=== PATIENT | male | born 1990 | race Caucasian/White ===

== ENCOUNTER 2019-02-08 14:08 | Emergency (ER) | payer BC, OTHER, SELFPAY ==
[~2019-02-08] VITALS: Ht 172.7 cm; Wt 50.0 kg
[2019-02-08 14:26] VITALS: BP 133/75
[2019-02-08 15:40] LABS: HEMATOCRIT 52.3 % (42.0-52.0); HEMOGLOBIN 17.8 g/dl (13.5-17.5); MEAN CORPUSCULAR HEMOGLOBIN 30.5 pg (27.0-33.0); MEAN CORPUSCULAR VOLUME 89.7 fl (80.0-96.0); PLATELET COUNT, AUTOMATED 436 10^3/uL (150-450); RED BLOOD COUNT 5.83 10^6/uL (4.30-6.10); WHITE BLOOD COUNT 8.6 10^3/uL (4.0-10.0)
[2019-02-08 16:13] LABS: ACETAMINOPHEN LEVEL < 2.0 UG/ML (10.0-30.0); ALBUMIN 4.9 GM/DL (3.2-5.2); ALT/SGPT 18 U/L (12-78); BILIRUBIN,DIRECT < 0.1 MG/DL (0.0-0.2); BILIRUBIN,TOTAL 0.2 MG/DL (0.2-1.0); BLOOD UREA NITROGEN 10 MG/DL (7-18); CALCIUM LEVEL 9.9 MG/DL (8.5-10.1); CARBON DIOXIDE LEVEL 28 MEQ/L (21-32); CHLORIDE LEVEL 104 MEQ/L (98-107); CREATININE FOR GFR 0.93 MG/DL (0.70-1.30); ETHYL ALCOHOL (ETHANOL) 0.427 % (0.000-0.010); GLOMERULAR FILTRATION RATE > 60.0 (>60); GLUCOSE, FASTING 72 MG/DL (70-100); POTASSIUM SERUM 4.6 MEQ/L (3.5-5.1); SALICYLATE LEVEL 5.1 MG/DL (5.0-30.0); SODIUM LEVEL 143 MEQ/L (136-145); THYROID STIMULATING HORMONE 0.968 uIU/ML (0.358-3.740); TOTAL PROTEIN 8.5 GM/DL (6.4-8.2)
[2019-02-08 16:15] LABS: AMPHETAMINES LEVEL URINE NEGATIVE (NEGATIVE); BARBITURATES URINE NEGATIVE (NEGATIVE); BENZODIAZEPINES URINE NEGATIVE (NEGATIVE); CANNABINOIDS URINE NEGATIVE (NEGATIVE); COCAINE METABOLITE URINE NEGATIVE (NEGATIVE); METHADONE URINE NEGATIVE (NEGATIVE); OPIATES URINE NEGATIVE (NEGATIVE); PHENCYCLIDINE URINE NEGATIVE (NEGATIVE)
== END 2019-02-08 18:45 | disposition home or self-care (01) ==
LOC: M ED 14:08
DX: F10.129 Alcohol abuse with intoxication, unspecified (principal); Y90.2 Blood alcohol level of 40-59 mg/100 ml
CPT/HCPCS: 36415; 80048; 80076; 80307; 84443; 85027; 99284; G0480

== ENCOUNTER → 2019-03-01 | Outpatient (CLI) | payer MEDICAID, SELFPAY | LOC: M OUTALCOH 10:24 | PROVIDERS: ATTEND Psychiatry & Neurology Psychiatry | DX: F10.20 Alcohol dependence, uncomplicated (principal); F11.10 Opioid abuse, uncomplicated; F12.10 Cannabis abuse, uncomplicated ==

== ENCOUNTER → 2019-06-14 | Outpatient (CLI) | payer MEDICAID | LOC: M OUTALCOH 08:17 | PROVIDERS: ATTEND Psychiatry & Neurology Addiction Medicine | DX: F10.20 Alcohol dependence, uncomplicated (principal) ==

== ENCOUNTER → 2019-06-21 | Outpatient (REF) | payer MEDICAID ==
[2019-06-21 14:22] LABS: ALBUMIN 4.3 GM/DL (3.2-5.2); ALT/SGPT 16 U/L (12-78); BILIRUBIN,TOTAL 0.3 MG/DL (0.2-1.0); BLOOD UREA NITROGEN 10 MG/DL (7-18); CALCIUM LEVEL 9.8 MG/DL (8.5-10.1); CARBON DIOXIDE LEVEL 32 MEQ/L (21-32); CHLORIDE LEVEL 102 MEQ/L (98-107); CHOLESTEROL LEVEL 181 MG/DL (<200); CHOLESTEROL RISK RATIO 3.693 (<5); CREATININE FOR GFR 0.77 MG/DL (0.70-1.30); FREE T4 0.86 NG/DL (0.76-1.46); GLOMERULAR FILTRATION RATE > 60.0 (>60); GLUCOSE, FASTING 109 MG/DL (70-100); HDL CHOLESTEROL 49 MG/DL (>40); LDL CHOLESTEROL 91 MG/DL (<100); NON-HDL-C 132 MG/DL; POTASSIUM SERUM 4.2 MEQ/L (3.5-5.1); SODIUM LEVEL 139 MEQ/L (136-145); TOTAL 25(OH) VITAMIN D 7.3 NG/ML (30.0-100.0); TOTAL PROTEIN 7.7 GM/DL (6.4-8.2); TRIGLYCERIDES LEVEL 207 MG/DL (<150)
[2019-06-21 14:25] LABS: BASO # 0.1 10^3/uL (0.0-0.2); BASO % 1.1 % (0.0-1.0); EOS # 0.8 10^3/uL (0.0-0.5); HEMATOCRIT 46.8 % (42.0-52.0); HEMOGLOBIN 15.2 g/dl (13.5-17.5); LYMPH # 2.8 10^3/uL (1.5-5.0); LYMPH % 26.6 % (24.0-44.0); MEAN CORPUSCULAR HEMOGLOBIN 29.7 pg (27.0-33.0); MEAN CORPUSCULAR HGB CONC 32.5 g/dl (32.0-36.5); MEAN CORPUSCULAR VOLUME 91.4 fl (80.0-96.0); MONO # 1.4 10^3/uL (0.0-0.8); MONO % 13.3 % (0.0-5.0); NEUTROPHILS # 5.3 10^3/uL (1.5-8.5); PLATELET COUNT, AUTOMATED 428 10^3/uL (150-450); RED BLOOD COUNT 5.12 10^6/uL (4.30-6.10); WHITE BLOOD COUNT 10.5 10^3/uL (4.0-10.0)
== END ==
LOC: M LAB REF 13:35
PROVIDERS: ATTEND Physician Assistant
DX: Z13.9 Encounter for screening, unspecified (principal); Z13.228 Encounter for screening for other metabolic disorders; F10.99 Alcohol use, unspecified with unspecified alcohol-induced disorder; F33.1 Major depressive disorder, recurrent, moderate; F34.1 Dysthymic disorder; F11.21 Opioid dependence, in remission

== ENCOUNTER 2019-06-22 08:54 | Outpatient (RCR) | payer MEDICAID | END 2019-06-25 | LOC: M OUTALCOH 08:54 | PROVIDERS: ATTEND Psychiatry & Neurology Addiction Medicine | DX: F10.20 Alcohol dependence, uncomplicated (principal); F11.10 Opioid abuse, uncomplicated; F12.10 Cannabis abuse, uncomplicated; F17.200 Nicotine dependence, unspecified, uncomplicated ==

== ENCOUNTER 2019-07-21 15:00 | Outpatient (RCR) | payer MEDICAID | END 2019-07-24 | LOC: M OUTALCOH 15:00 | PROVIDERS: ATTEND Psychiatry & Neurology Addiction Medicine | DX: F10.20 Alcohol dependence, uncomplicated (principal); F11.11 Opioid abuse, in remission; F12.10 Cannabis abuse, uncomplicated; F17.200 Nicotine dependence, unspecified, uncomplicated ==

== ENCOUNTER 2019-07-28 19:12 | Emergency (ER) | payer MEDICAID ==
[~2019-07-28] VITALS: Ht 170.2 cm; Wt 56.9 kg
[2019-07-28] MEDS ORDERED: SUBO8MIS SL (19:30)
[2019-07-28 19:59] LABS: BASO # 0.1 10^3/uL (0.0-0.2); BASO % 0.9 % (0.0-1.0); EOS # 0.1 10^3/uL (0.0-0.5); EOS % 0.7 % (0.0-3.0); HEMATOCRIT 47.7 % (42.0-52.0); HEMOGLOBIN 15.9 g/dl (13.5-17.5); LYMPH # 2.1 10^3/uL (1.5-5.0); MEAN CORPUSCULAR HEMOGLOBIN 29.6 pg (27.0-33.0); MEAN CORPUSCULAR HGB CONC 33.3 g/dl (32.0-36.5); MEAN CORPUSCULAR VOLUME 88.7 fl (80.0-96.0); MONO # 1.2 10^3/uL (0.0-0.8); MONO % 13.1 % (0.0-5.0); NEUTROPHILS # 5.5 10^3/uL (1.5-8.5); NEUTROPHILS % 60.6 % (36.0-66.0); PLATELET COUNT, AUTOMATED 525 10^3/uL (150-450); RED BLOOD COUNT 5.38 10^6/uL (4.30-6.10)
[2019-07-28 20:27] LABS: ALBUMIN 4.8 GM/DL (3.2-5.2); ALT/SGPT 18 U/L (12-78); BILIRUBIN,DIRECT 0.2 MG/DL (0.0-0.2); BILIRUBIN,TOTAL 0.4 MG/DL (0.2-1.0); BLOOD UREA NITROGEN 12 MG/DL (7-18); CALCIUM LEVEL 9.8 MG/DL (8.5-10.1); CARBON DIOXIDE LEVEL 30 MEQ/L (21-32); CHLORIDE LEVEL 101 MEQ/L (98-107); CREATININE FOR GFR 0.88 MG/DL (0.70-1.30); GLOMERULAR FILTRATION RATE > 60.0 (>60); GLUCOSE, FASTING 91 MG/DL (70-100); POTASSIUM SERUM 4.9 MEQ/L (3.5-5.1); SODIUM LEVEL 135 MEQ/L (136-145); TOTAL PROTEIN 8.5 GM/DL (6.4-8.2)
[2019-07-28] MEDS ORDERED: BUPRENORPHINE/NALOXONE 8-2MG SUBLINGUAL TABLET(SUBOXONE) SL ONE (20:45)
[2019-07-28 21:00] VITALS: BP 112/70
--- NOTE | 2019-07-29 07:09 | ECGEPIP ---
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
== END 2019-07-28 21:24 | disposition home or self-care (01) ==
LOC: M ED 19:12
DX: F11.23 Opioid dependence with withdrawal (principal); F17.200 Nicotine dependence, unspecified, uncomplicated

== ENCOUNTER 2019-08-11 13:53 | Outpatient (RCR) | payer MEDICAID ==
[~2019-08-11 13:53] MED LIST: SUBO8MIS SL
== END 2019-08-24 ==
LOC: M OUTALCOH 13:53
PROVIDERS: ATTEND Psychiatry & Neurology Addiction Medicine
DX: F10.20 Alcohol dependence, uncomplicated (principal); F11.11 Opioid abuse, in remission; F12.11 Cannabis abuse, in remission; F17.200 Nicotine dependence, unspecified, uncomplicated

== ENCOUNTER 2019-09-02 15:31 | Inpatient (IN) | payer MEDICAID, OTHER ==
[~2019-09-02] VITALS: Ht 170.2 cm; Wt 56.8 kg
[2019-09-02 16:04] LABS: HEMATOCRIT 51.5 % (42.0-52.0); HEMOGLOBIN 17.4 g/dl (13.5-17.5); MEAN CORPUSCULAR HEMOGLOBIN 29.7 pg (27.0-33.0); MEAN CORPUSCULAR HGB CONC 33.8 g/dl (32.0-36.5); PLATELET COUNT, AUTOMATED 459 10^3/uL (150-450); RED BLOOD COUNT 5.85 10^6/uL (4.30-6.10); WHITE BLOOD COUNT 10.6 10^3/uL (4.0-10.0)
[2019-09-02 16:42] LABS: ACETAMINOPHEN LEVEL < 2.0 UG/ML (10.0-30.0); ALBUMIN 4.5 GM/DL (3.2-5.2); ALT/SGPT 16 U/L (12-78); BILIRUBIN,DIRECT < 0.1 MG/DL (0.0-0.2); BILIRUBIN,TOTAL 0.2 MG/DL (0.2-1.0); BLOOD UREA NITROGEN 11 MG/DL (7-18); CALCIUM LEVEL 9.4 MG/DL (8.5-10.1); CARBON DIOXIDE LEVEL 33 MEQ/L (21-32); CHLORIDE LEVEL 104 MEQ/L (98-107); CREATININE FOR GFR 0.81 MG/DL (0.70-1.30); ETHYL ALCOHOL (ETHANOL) 0.417 % (0.000-0.010); GLOMERULAR FILTRATION RATE > 60.0 (>60); GLUCOSE, FASTING 95 MG/DL (70-100); POTASSIUM SERUM 4.3 MEQ/L (3.5-5.1); SALICYLATE LEVEL 7.2 MG/DL (5.0-30.0); SODIUM LEVEL 145 MEQ/L (136-145); THYROID STIMULATING HORMONE 0.553 uIU/ML (0.358-3.740); TOTAL PROTEIN 8.2 GM/DL (6.4-8.2)
[2019-09-02] MEDS ORDERED: HALOPERIDOL 5 MG/ML VIAL (J1630) IM ONE (17:15)
[2019-09-02] MEDS ORDERED: LIDOCAINE 2% 5ML JELLY UROJET TOP ONE (17:15)
[2019-09-02] MEDS ORDERED: LORazepam 2 MG/ML VIAL (J2060) IM ONE (17:15)
[2019-09-02] MEDS ORDERED: diphenhydrAMINE 50MG/ML VIAL (J1200) IM ONE (17:15)
[2019-09-02] MEDS ORDERED: NS 1,000 ML IV ONE ×2 (19:00→20:00)
[2019-09-02 22:41] LABS: AMPHETAMINES LEVEL URINE NEGATIVE (NEGATIVE); BARBITURATES URINE NEGATIVE (NEGATIVE); BENZODIAZEPINES URINE NEGATIVE (NEGATIVE); CANNABINOIDS URINE NEGATIVE (NEGATIVE); COCAINE METABOLITE URINE NEGATIVE (NEGATIVE); METHADONE URINE NEGATIVE (NEGATIVE); OPIATES URINE NEGATIVE (NEGATIVE); PHENCYCLIDINE URINE NEGATIVE (NEGATIVE)
[2019-09-03] MEDS ORDERED: OXAZEPAM 15 MG CAP PO ONE (04:30)
[2019-09-03] MEDS ORDERED: MOM 30ML SUSPENSION UDC PO PRN (06:00)
[2019-09-03] MEDS ORDERED: traZODone 50 MG TAB PO PRN (06:00)
[2019-09-03] MEDS ORDERED: ACETAMINOPHEN TAB 650MG DOSE (2X325MG) PO PRN (06:00)
[2019-09-03] MEDS ORDERED: MAALOX 30 ML SUSP *UDC PO PRN (06:00)
[2019-09-03] MEDS ORDERED: HYDR-3363 PO (06:07)
[2019-09-03] MEDS ORDERED: VITA50005 PO (06:07)
[2019-09-03] MEDS ORDERED: SERT-138 PO (06:07)
[2019-09-03] MEDS ORDERED: SUBO8MIS SL (06:07)
[2019-09-03] MEDS ORDERED: LORazepam 2 MG TAB PO PRN (09:00)
--- NOTE | 2019-09-03 10:05 | MHHPEPDOC ---
[facility] History & Physical History and Physical DATE OF ADMISSION: Sep 03, 2019 at 05:46 New Patient Alejandro Warren MRN: N/A Date of : N/A Date of Service: 09/03/2019 Chief Complaint "I was drinking a lot." History of Present Illness The patient, a 29-year-old man with no major past psychiatric history, presents after becoming extraordinarily intoxicated with a blood alcohol of 0.4 and above. He had been brought in after reportedly making suicidal statements and after being medically cleared was admitted out of an abundance of caution to the inpatient mental health unit. He does have a history of opioid use and substance use problems, but denies any history of psychiatric involvement or treatment. When the patient was met with he stated that he felt much improved after he had been detoxed off the alcohol and that he did not actually feel like he wanted to hurt himself. He described that he had been drinking too much due to the coronavirus quarantine and that he had started to become quite anxious and depressed while he was highly intoxicated. He describes he does not remember the majority of the admission up until he had become sober. Review Of Systems Depression: The patient denies any episodes of unprovoked depressed mood associated with neurovegetative symptoms lasting longer than 2 weeks with symptoms present nearly everyday. Anxiety: The patient denies any excessive worry associated with physical symptoms. They deny any experience of discreet panic in the past. Ricarda: The patient denies any episodes of euphoria/dysphoria associated with decreased need for sleep, hedonism, talkatively or impulsivity lasting longer than 5 days. Psychotic: The patient denies any experiences of auditory or visual hallucinations. They deny any episodes of paranoia or delusional thinking in the past Trauma: The patient denies any traumatic events associated with nightmares or intrusive thoughts. Borderline: The patient screens negative for borderline personality at this junction. Past Psychiatric History The patient reports no history of psychiatric admissions, medication trials or current follow up. Denies any history of suicide attempts. Allergies Please see below. Family Psychiatric History Reports that majority of his family have a history of depression, on antidepressants, and that his brother is addicted to heroin, methamphetamine, alcohol, but no history of suicide. Social History The patient is a never man with no children at this time. He lives alone in a rented house. He is currently unemployed and is receiving public assistance. He graduated the GED. Has no history of legal problems. Grew up with parents with no history of trauma or abuse. Reports good relationship with both, reports being estranged from brothers. Substance Abuse History Has an extensive history of alcohol use, nicotine, and opioids, currently on Suboxone treated by Dr. Forbes. Medical History Patient has no significant past medical history. Mental Status Examination General: Well dressed with good hygiene Speech: Spontaneous and fluid Thought processes: Linear and logical MSK: Smooth and coordinated gait, no signs of tremors or involuntary orofacial movements Thought content: Future orientated Abstract reasoning, and computation: Intact Description of associations: Intact Description of abnormal or psychotic thoughts: Denies any suicidal or homicidal ideation. Denies any auditory or visual hallucinations. Does not appear to be responding to internal stimuli. Does not appear to be endorsing any bizarre or paranoid ideation. Judgment: fair Insight: fair Orientation: Alert and orientated 3 Cognition: Grossly normal Recent and remote memory: Intact Attention span and concentration: Intact Fund of knowledge: Adequate Mood: "okay" Affect: Euthymic with a full range Diagnoses Unspecified depressive disorder. Adjustment versus alcohol induced. Alcohol use disorder, severe. Opioid use disorder, severe, on maintenance. Nicotine use disorder, moderate. Assessment and Plan Unspecified depressive disorder: We'll observe patient currently on sertraline 150 mg daily, will continue at this time. Alcohol use disorder: [facility] protocol. Opioid use disorder: Continue home Suboxone. Nicotine use disorder: Offered nicotine replacement. Disposition Patient will be observed overnight and subsequently discharged if he continues to deny any suicidal or homicidal ideation as he does not wish to stay and will likely not meet involuntary criteria tomorrow. Problem List 1. Risk for suicide. 2. Substance use. 3. Ineffective coping. Initial Treatment Plan 1. Patient was admitted on a 9.39 legal status. 2. Complete history was obtained. 3. With patients permission, family will be contacted and database will be expanded. 4. Patients medication regimen will be reviewed and changed accordingly. 5. Patient will be provided with protected environment. 6. Patient will be treated with individual, group, and milieu therapies. 7. Patient will receive supportive psych-education. 8. Discharge planning will commence immediately. 9. Outpatient follow-up treatment will be strongly recommended. 10. The initial treatment plan will focus initially on: Estimated Length Of Stay 2 days. Time Spent 70 minutes with greater than 50% of time spent on counseling/coordination of his care. Friday Vital Signs Vital Signs Date Time Temp Pulse Resp B/P (MAP) Pulse Ox O2 Delivery O2 Flow Rate FiO2 09/03/19 09:15 98.3 102 20 121/70 (87) Room Air 09/03/19 04:36 96 09/02/19 21:45 2.0 Laboratory Data 24H Labs Laboratory Tests 2 09/02/19 15:50: Nucleated Red Blood Cells % (auto) 0.0, Anion Gap 8, Glomerular Filtration Rate > 60.0, Calcium Level 9.4, Total Bilirubin 0.2, Direct Bilirubin < 0.1, Aspartate Amino Transf (AST/SGOT) 19, Alanine Aminotransferase (ALT/SGPT) 16, Alkaline Phosphatase 107, Total Protein 8.2, Albumin 4.5, Albumin/Globulin Ratio 1.22, Thyroid Stimulating Hormone (TSH) 0.553, Salicylates Level 7.2, Acetaminophen Level < 2.0L, Ethyl Alcohol Level 0.417H 09/02/19 17:45: Urine Opiates Screen NEGATIVE, Urine Methadone Screen NEGATIVE, Urine Barbiturates Screen NEGATIVE, Urine Phencyclidine Screen NEGATIVE, Urine Amphetamines Screen NEGATIVE, Urine Benzodiazepines Screen NEGATIVE, Urine Cocaine Metabolite Screen NEGATIVE, Urine Cannabinoids Screen NEGATIVE 09/02/19 21:01: Ethyl Alcohol Level 0.258H CBC/BMP Laboratory Tests 09/02/19 15:50 Medications Scheduled Buprenorphine HCl/Naloxone HCl (Suboxone 8 mg-2 mg Sl Film) 1 Each Film, 1 STRIP SL DAILY, (Reported) Disulfiram (Disulfiram) 250 Mg Tablet, 1 TAB PO DAILY for alcohol Ergocalciferol (Vitamin D2) (Vitamin D2) 50,000 Units Cap, 50,000 UNITS PO 1XWK, (Reported) FRIDAY Hydroxyzine HCl (Hydroxyzine HCl) 25 Mg Tablet, 50 MG PO QHS, (Reported) Sertraline HCl (Sertraline HCl) 100 Mg Tablet, 150 MG PO DAILY, (Reported) Allergies Coded Allergies: No Known Drug Allergies (Verified Allergy, Unknown, 07/28/19) CORA FARRIS DO Sep 03, 2019 10:05
[2019-09-03 10:22] VITALS: BP 142/70
[2019-09-03 10:31] VITALS: BP 142/70
[2019-09-03] MEDS ORDERED: DISU250T PO (10:49)
--- NOTE | 2019-09-03 11:14 | HPEPDOC ---
General Date of Admission Sep 03, 2019 at 05:46 Date of Service: Sep 03, 2019 Chief Complaint The patient is a 29-year-old male admitted with a reason for visit of Unspecified Depressive Disorder. Source: Patient History of Present Illness 29 year old male admitted to [facility] for depression with suicidal ideas and was intoxicated on admission. His CHINO level was 0.416. he was brought in by police who had to break down his door to enter as he was not answering his door. i am seeing the patient for medical hisotry and physical . Today he complains of a cough though minimizes it and says its a smokers cough, he also has chills and shivering and is tremulous. No fever documented. Says that he may be withdrawing. Denied any sore throat or SOb. Denied any abdominal pain vomiting or diarrhea. Home Medications Scheduled Buprenorphine HCl/Naloxone HCl (Suboxone 8 mg-2 mg Sl Film) 1 Each Film, 1 STRIP SL DAILY, (Reported) Ergocalciferol (Vitamin D2) (Vitamin D2) 50,000 Units Cap, 50,000 UNITS PO 1XWK, (Reported) FRIDAY Hydroxyzine HCl (Hydroxyzine HCl) 25 Mg Tablet, 50 MG PO QHS, (Reported) Sertraline HCl (Sertraline HCl) 100 Mg Tablet, 150 MG PO DAILY, (Reported) Allergies Coded Allergies: No Known Drug Allergies (Verified Allergy, Unknown, 07/28/19) Past Medical History Medical History Alcohol use disorder, On subaxone, ex narcotic addict. Surgical History undescended testes Family History Significant Family History: No pertinent family hx discussed with patient Social History * Smoker: current smoker Alcohol: heavy A-FIB/CHADSVASC A-FIB History Current/History of A-Fib/PAF?: No Review of Systems Constitutional: Reports: Chills Eyes: Denies: Pain, Vision change ENT: Denies: Head Aches, Ear Pain, Dysphagia Skin: Denies: Rash, Lesions, Breakdown Pulmonary: Reports: Cough Cardiovascular: Denies: Chest Pain, Palpitations, Orthopnea, Paroxysmal Noc. Dyspnea, Lt Headedness Gastrointestinal: Denies: Nausea, Vomiting, Abdominal Pain, Diarrhea Genitourinary: Denies: Dysuria, Frequency, Incontinence, Retention Hematologic: Denies: Bruising, Bleeding Excessively Musculoskeletal: Denies: Neck Pain, Back Pain, Joint Pain, Muscle Pain, Spasms Neurological: Denies: Weakness, Numbness, Change in speech, Confusion Physical Examination General Exam: Positive: Alert, Cooperative, No Acute Distress Eye Exam: Positive: PERRLA, Conjunctiva & lids normal, EOMI; Negative: Sclera icteric ENT Exam: Positive: Atraumatic, Mucous membr. moist/pink, Pharynx Normal Neck Exam: Positive: Supple; Negative: JVD, thyromegaly Chest Exam: Positive: Clear to auscultation, Normal air movement Heart Exam: Positive: Rate Normal, Regular Rhythm, Normal S1, Normal S2; Negative: Murmurs, Rubs Abdomen Exam: Positive: Normal bowel sounds, Soft; Negative: Tenderness, Hepatospenomegaly Extremity Exam: Positive: Normal pulses; Negative: Clubbing, Cyanosis, Edema Skin Exam: Positive: Nl turgor and temperature; Negative: Breakdown, Lesion Vital Signs Vital Signs Date Time Temp Pulse Resp B/P (MAP) Pulse Ox O2 Delivery O2 Flow Rate FiO2 09/03/19 10:31 102 142/70 09/03/19 10:22 98.0 18 09/03/19 09:15 Room Air 09/03/19 04:36 96 09/02/19 21:45 2.0 Laboratory Data Labs 24H Laboratory Tests 2 09/02/19 15:50: Nucleated Red Blood Cells % (auto) 0.0, Anion Gap 8, Glomerular Filtration Rate > 60.0, Calcium Level 9.4, Total Bilirubin 0.2, Direct Bilirubin < 0.1, Aspa rtate Amino Transf (AST/SGOT) 19, Alanine Aminotransferase (ALT/SGPT) 16, Alkaline Phosphatase 107, Total Protein 8.2, Albumin 4.5, Albumin/Globulin Ratio 1.22, Thyroid Stimulating Hormone (TSH) 0.553, Salicylates Level 7.2, Acetaminophen Level < 2.0L, Ethyl Alcohol Level 0.417H 09/02/19 17:45: Urine Opiates Screen NEGATIVE, Urine Methadone Screen NEGATIVE, Urine Barbiturates Screen NEGATIVE, Urine Phencyclidine Screen NEGATIVE, Urine Amphetamines Screen NEGATIVE, Urine Benzodiazepines Screen NEGATIVE, Urine Cocaine Metabolite Screen NEGATIVE, Urine Cannabinoids Screen NEGATIVE 09/02/19 21:01: Ethyl Alcohol Level 0.258H CBC/BMP Laboratory Tests 09/02/19 15:50 Assessment/Plan 29 year old male admitted to [facility] for depression with suicidal ideas and was intoxicated on admission. His CHINO level was 0.416. he was brought in by police who had to break down his door to enter as he was not answering his door. i am seeing the patient for medical history and physical, Shivering, tremors possibly having alcohol withdrawal and Suboxone withdrawal. unknown when he las took his subaxone. management as per psychiatry will order Suboxone as per nurses request and it present in med reconciliation On serax, thiamine and folate. Psych issues, depression as per psychiatry. Plan / VTE VTE Prophylaxis Ordered?: No GALA ARELLANO MD Sep 03, 2019 11:14
[2019-09-03] MEDS: BUPRENORPHINE/NALOXONE 8-2MG SUBLINGUAL TABLET(SUBOXONE) SL SCH (12:33)
[2019-09-03] MEDS: FOLIC ACID 1 MG TAB PO SCH (12:33)
[2019-09-03] MEDS: THIAMINE 100 MG TAB PO SCH ×2 (12:33→20:31)
[2019-09-03] MEDS: MULTIVITAMINS/MINERALS THERAP 1 TAB PO SCH (12:33)
[2019-09-03 12:46] VITALS: BP 129/70
[2019-09-03 14:53] VITALS: BP 132/70
[2019-09-03 16:00] VITALS: BP 123/73
[2019-09-03 20:40] VITALS: BP 133/78
[2019-09-04 02:45] VITALS: BP 130/80
[2019-09-04 07:00] VITALS: BP 143/69
[2019-09-04] MEDS: MULTIVITAMINS/MINERALS THERAP 1 TAB PO SCH (08:08)
[2019-09-04] MEDS: BUPRENORPHINE/NALOXONE 8-2MG SUBLINGUAL TABLET(SUBOXONE) SL SCH (08:08)
[2019-09-04] MEDS: THIAMINE 100 MG TAB PO SCH (08:08)
[2019-09-04] MEDS: FOLIC ACID 1 MG TAB PO SCH (08:08)
--- NOTE | 2019-09-04 11:48 | MHDSPDOC ---
[facility] Discharge Summary Discharge Summary DATE OF ADMISSION: Sep 03, 2019 at 05:46 DATE OF DISCHARGE: 09/04/19 Discharge Alejandro Warren MRN: N/A Date of : N/A Date of Service: 09/04/2019 Diagnoses Unspecified depressive disorder. Adjustment versus alcohol induced. Alcohol use disorder, severe. Opioid use disorder, severe, on maintenance. Nicotine use disorder, moderate. History of Present Illness The patient, a 29-year-old man with no major past psychiatric history, presents after becoming extraordinarily intoxicated with a blood alcohol of 0.4 and above. He had been brought in after reportedly making suicidal statements and after being medically cleared was admitted out of an abundance of caution to the inpatient mental health unit. He does have a history of opioid use and substance use problems, but denies any history of psychiatric involvement or treatment. When the patient was met with he stated that he felt much improved after he had been detoxed off the alcohol and that he did not actually feel like he wanted to hurt himself. He described that he had been drinking too much due to the co ronavirus quarantine and that he had started to become quite anxious and depressed while he was highly intoxicated. He describes he does not remember the majority of the admission up until he had become sober. Consultants Involved Hospitalist/PCP screening Treatment and Progress On The Unit The patient was admitted to the inpatient mental health unit and observed for 48 hours. He was started on CIWA protocol for his alcohol use and did well with minimal scoring. He had been resumed on his home medications of sertraline and Suboxone with no incident. He was observed and was friendly and amenable with no behavioral problems and attended some treatment. The patient had requested to leave he reported that he was quite intoxicated when he had presented and that h e no longer felt the same way. Discharge Assessment 29-year-old man with likely significant alcohol problems presents after becoming intoxicated making suicidal statements. He's admitted out of an abundance of caution, however, after observation becomes clear that the substance induced component is the primary provoking part for his admission at this time. The patient at the time of discharge did not meet criteria for involuntary admission/extension due to having a normal mental status exam, fair insight into the situation, They are engaged in the discharge process, as well as being friendly and amenable in behavioral control and havent been engaging in any observed concerning behavior or ideation recently. They decline voluntary extension/admission at this time and must be discharged in good gilmar, as Im unable to make a case for holding the patient against their will. They may have historical risk factors of admissions and other interactions with psychiatry however, those are not modifiable from a clinical perspective. The patient will need to be discharged in good gilmar. Mental Status Examination General: Well dressed with good hygiene Speech: Spontaneous and fluid Thought processes: Linear and logical MSK: Smooth and coordinated gait, no signs of tremors or involuntary orofacial movements Thought content: Future orientated Abstract reasoning, and computation: Intact Description of associations: Intact Description of abnormal or psychotic thoughts: Denies any suicidal or homicidal ideation. Denies any auditory or visual hallucinations. Does not appear to be responding to internal stimuli. Does not appear to be endorsing any bizarre or paranoid ideation. Judgment: fair Insight: fair Orientation: Alert and orientated 3 Cognition: Grossly normal Recent and remote memory: Intact Attention span and concentration: Intact Fund of knowledge: Adequate Mood: "okay" Affect: Euthymic with a full range Follow Up The social work team worked during the predischarge meeting in order to evaluate for further issues of lethality address them fully before discharge. They worked on safety planning with the patient's family members in order to ensure that the patient will have a safe and effective discharge. Provided patient alcohol use treatment in the form of disulfiram. Discussed risks, benefits, and potential side effects. Recommended patient consider treatment. Time Spent The amount of time spent in the coordination of care for this patient was approximately 45 minutes. Friday Vital Signs/I&Os Vital Signs Date Time Temp Pulse Resp B/P (MAP) Pulse Ox O2 Delivery O2 Flow Rate FiO2 09/04/19 07:00 97.4 78 18 143/69 (93) 99 Room Air 09/02/19 21:45 2.0 Medications Scheduled Buprenorphine HCl/Naloxone HCl (Suboxone 8 mg-2 mg Sl Film) 1 Each Film, 1 STRIP SL DAILY, (Reported) Disulfiram (Disulfiram) 250 Mg Tablet, 1 TAB PO DAILY for alcohol for 7 Days, #7 Ergocalciferol (Vitamin D2) (Vitamin D2) 50,000 Units Cap, 50,000 UNITS PO 1XWK, (Reported) FRIDAY Hydroxyzine HCl (Hydroxyzine HCl) 25 Mg Tablet, 50 MG PO QHS, (Reported) Sertraline HCl (Sertraline HCl) 100 Mg Tablet, 150 MG PO DAILY, (Reported) Allergies Coded Allergies: No Known Drug Allergies (Verified Allergy, Unknown, 07/28/19) CORA FARRIS DO Sep 04, 2019 11:48
== END 2019-09-04 13:50 | disposition home or self-care (01) | DRG 773 ==
LOC: M ED 15:31 → M ED INP 09-03 05:46 → M PSY 09-03 09:30
PROVIDERS: ADMIT Psychiatry & Neurology Psychiatry; ATTEND Psychiatry & Neurology Addiction Medicine
DX: F10.24 Alcohol dependence with alcohol-induced mood disorder (principal); F43.21 Adjustment disorder with depressed mood; F11.20 Opioid dependence, uncomplicated; F17.200 Nicotine dependence, unspecified, uncomplicated; F10.229 Alcohol dependence with intoxication, unspecified; Z79.899 Other long term (current) drug therapy

== ENCOUNTER 2019-09-16 20:26 | Inpatient (IN) | payer MEDICAID, OTHER ==
[~2019-09-16] VITALS: Ht 170.2 cm; Wt 52.6 kg
[~2019-09-16 20:26] MED LIST changes: +DISU250T PO; +HYDR-3363 PO; +SERT-138 PO; +VITA50005 PO
[2019-09-16] MEDS ORDERED: NS 1,000 ML IV ONE (21:00)
[2019-09-16] MEDS ORDERED: THIAMINE 100 MG TAB PO SCH (21:00)
[2019-09-16] MEDS ORDERED: KETOROLAC 30 MG/ML 1ML VIAL IV ONE (21:00)
[2019-09-16] MEDS ORDERED: ONDANSETRON 4MG/2ML VIAL IV ONE (21:00)
[2019-09-16] MEDS ORDERED: LORazepam 2 MG/ML VIAL (J2060) IV STA (21:15)
--- NOTE | 2019-09-16 21:16 | REPVR ---
PROCEDURE INFORMATION: Exam: CT Abdomen And Pelvis Without Contrast Exam date and time: 09/16/2019 8:56 PM Age: 29 years old Clinical indication: Abdominal pain; Flank; Right; Additional info: Right flank pain; R/O stone TECHNIQUE: Imaging protocol: Computed tomography of the abdomen and pelvis without contrast. Radiation optimization: All CT scans at this facility use at least one of these dose optimization techniques: automated exposure control; mA and/or kV adjustment per patient size (includes targeted exams where dose is matched to clinical indication); or iterative reconstruction. COMPARISON: No relevant prior studies available. FINDINGS: Liver: Liver measures 18 cm and is mildly large. Hepatic steatosis. Gallbladder and bile ducts: Normal. No calcified stones. No ductal dilation. Pancreas: Normal. No ductal dilation. Spleen: Normal. No splenomegaly. Adrenals: Normal. No mass. Kidneys and ureters: Multiple nonobstructing calculi in the left kidney with the largest measuring 7 mm in the midpole of left kidney. Stomach and bowel: Unremarkable. No obstruction. No mucosal thickening. Appendix: No evidence of appendicitis. Intraperitoneal space: Unremarkable. No free air. No significant fluid collection. Vasculature: Unremarkable. No abdominal aortic aneurysm. Lymph nodes: Unremarkable. No enlarged lymph nodes. Bladder: Unremarkable as visualized. Reproductive: Unremarkable as visualized. Bones/joints: Unremarkable. No acute fracture. Soft tissues: Unremarkable. IMPRESSION: No acute abdominal or pelvic abnormality. Electronically signed by: Maximiliano Estrada On 09/16/2019 21:16:22 PM
[2019-09-16 21:20] LABS: BASO # 0.1 10^3/uL (0.0-0.2); BASO % 0.5 % (0.0-1.0); HEMATOCRIT 46.8 % (42.0-52.0); HEMOGLOBIN 16.3 g/dl (13.5-17.5); LYMPH # 0.9 10^3/uL (1.5-5.0); LYMPH % 5.8 % (24.0-44.0); MEAN CORPUSCULAR HGB CONC 34.8 g/dl (32.0-36.5); MEAN CORPUSCULAR VOLUME 86.2 fl (80.0-96.0); MONO # 1.9 10^3/uL (0.0-0.8); NEUTROPHILS # 11.7 10^3/uL (1.5-8.5); PLATELET COUNT, AUTOMATED 432 10^3/uL (150-450); RED BLOOD COUNT 5.43 10^6/uL (4.30-6.10); WHITE BLOOD COUNT 14.6 10^3/uL (4.0-10.0)
[2019-09-16 21:29] LABS: ACETAMINOPHEN LEVEL < 2.0 UG/ML (10.0-30.0); ALBUMIN 4.6 GM/DL (3.2-5.2); ALT/SGPT 45 U/L (12-78); BILIRUBIN,DIRECT 0.3 MG/DL (0.0-0.2); BILIRUBIN,TOTAL 0.8 MG/DL (0.2-1.0); BLOOD UREA NITROGEN 17 MG/DL (7-18); CALCIUM LEVEL 10.1 MG/DL (8.5-10.1); CARBON DIOXIDE LEVEL 24 MEQ/L (21-32); CHLORIDE LEVEL 100 MEQ/L (98-107); CK-MB VALUE MASS 1.5 NG/ML (<3.6); CPK CREATINE PHOSPHOKINASE 139 U/L (39-308); CREATININE FOR GFR 0.89 MG/DL (0.70-1.30); ETHYL ALCOHOL (ETHANOL) 0.043 % (0.000-0.010); GLOMERULAR FILTRATION RATE > 60.0 (>60); GLUCOSE, FASTING 93 MG/DL (70-100); LIPASE 3507 U/L (73-393); MAGNESIUM LEVEL 1.9 MG/DL (1.8-2.4); MB/CK RELATIVE INDEX 1.08 (< OR =4); POTASSIUM SERUM 4.1 MEQ/L (3.5-5.1); SALICYLATE LEVEL < 1.7 MG/DL (5.0-30.0); SODIUM LEVEL 141 MEQ/L (136-145); TOTAL PROTEIN 8.4 GM/DL (6.4-8.2); TROPONIN I < 0.02 NG/ML (< 0.10)
[2019-09-16 21:30] LABS: INR 1.07; PROTHROMBIN TIME 13.6 SECONDS (11.8-14.0)
[2019-09-16 21:31] LABS: PARTIAL THROMBOPLASTIN TIME 26.7 SECONDS (25.0-38.4)
[2019-09-16] MEDS ORDERED: MULTIVITAMIN -ADULT INJECTION 10 ML, THIAMINE INJection 100 MG, FOLIC ACID 1 MG in NS 1... IV ONE (21:45)
[2019-09-16] MEDS ORDERED: BUPRENORPHINE/NALOXONE 2-0.5MG SUBLINGUAL TABLET(SUBOXONE) SL ONE (23:15)
[2019-09-16] MEDS ORDERED: MOM 30ML SUSPENSION UDC PO PRN (23:15)
[2019-09-16] MEDS ORDERED: ACETAMINOPHEN TAB 650MG DOSE (2X325MG) PO PRN (23:15)
[2019-09-17] VITALS (8 sets, daily range): BP systolic 110–150; BP diastolic 63–78
--- NOTE | 2019-09-17 00:17 | REPVR ---
PROCEDURE INFORMATION: Exam: US Abdomen Complete Exam date and time: 09/17/2019 12:03 AM Age: 29 years old Clinical indication: Other: Withdrawal; Additional info: Right flank pain TECHNIQUE: Imaging protocol: Real-time ultrasound of the abdomen with image documentation. COMPARISON: CT ABD PELVIS W/O CONTRAST 09/16/2019 8:53 PM FINDINGS: Liver: Echogenic liver representing fatty infiltration. Gallbladder: Gallbladder is unremarkable. Common bile duct: Common bile duct is normal measuring 3.8 mm. Pancreas: Pancreas is unremarkable. Right kidney: Right kidney is unremarkable measuring 10.3 cm. Left kidney: Left kidney is measuring 10.7 cm. Multiple upper and mid pole echogenic areas are seen within the left kidney measuring up to 9 x 5 x 10 mm likely representing renal calculi. No hydronephrosis. Spleen: Spleen is measuring 7.8 cm. S is very spleen measuring 8 x 6 x 8 mm. Aorta: Visualized abdominal aorta is unremarkable. Inferior vena cava: Normal. Intraperitoneal space: No free fluid. IMPRESSION: Multiple nonobstructing left renal calculi. Right kidney is unremarkable. Fatty liver. No acute findings. Electronically signed by: Marielos Champion On 09/17/2019 00:17:03 AM
[2019-09-17] MEDS: OXAZEPAM 10 MG CAP PO SCH ×4 (00:58→17:53)
[2019-09-17] MEDS: hydrOXYzine 25 MG TAB PO PRN (00:58)
[2019-09-17] MEDS: NS 1,000 ML IV SCH ×7 (00:59→21:51)
[2019-09-17] MEDS: LORazepam 2 MG TAB PO PRN ×5 (02:02→20:52)
[2019-09-17] MEDS: KETOROLAC 30 MG/ML 1ML VIAL IV SCH ×4 (02:03→20:52)
--- NOTE | 2019-09-17 03:15 | HPEPDOC ---
General Date of Admission Sep 16, 2019 at 22:42 Date of Service: Sep 16, 2019 Attending Physician: MEREDITH GARRISON MD Chief Complaint The patient is a 29-year-old male admitted with a reason for visit of Alcohol Withdrawal. History of Present Illness HPI: This is a 29-year-old male presenting for worsening right-sided flank pain, gradually getting worse since yesterday without any inciting event. He reports associated nausea and vomiting, unable to keep down any solids or liquids. Denies any hematemesis, lightheadedness, now vomiting bile. Denies any changes in bowel habits or any other blood loss. He also reports he has been unable to obtain Suboxone the past few days due to missing his appointment since he was intoxicated. He reports he feels chills and tremors. Also drinks heavily, last drink reportedly morning of 09/14. In ER, found to have unremarkable CT of abd/pelvis, elevated lipase 3000+, WBC 14, CHINO 0.043. He will be admitted for pancreatitis treatment & withdrawal monitoring. 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 Admits chills & poor appetite HEENT: Denies headache, dysphagia Skin: Denies any rashes or lesions Pulmonary: Denies dyspnea, cough, wheezing Cardiac: Denies chest pain, palpitations, orthopnea, PND, edema, lightheadedness GI: Denies diarrhea, constipation, melena, hematochezia. Admits nausea, vomiting, abdominal pain : Denies dysuria, hematuria, retention .Admits hx of kidney stones MSK: Denies new pains or weakness or joint swelling Neurologic: Denies new numbness/tingling PHYSICAL: General exam: A&Ox3, NAD, resting comfortably, tremulous at rest, cachectic appearing HEENT: NCAT, EOMI, injected conjunctiva, neck supple, dry mucous membranes Cardiac: regular rhythm, rate borderline tachycardic, normal S1 & S2, no murmurs Respiratory: CTAB, good air exchange, no w/r/r Abdomen: soft, ND scaphoid abd, normoactive bowel sounds, tender RLQ, + right CVA tenderness, no hepatosplenomegaly or abd masses Extremity: 2+ radial and dorsalis pedis pulses, no edema or calf tenderness Skin: [place], warm, dry, no visible rash. Healed cigarette h[place] on abd and arms. No jaundice Msk: strength 5/5 x4, normal tone. Low muscle mass Neuro: normal speech, motor & sensation intact. Tremulous throughout Psych: Normal mood and affect LABORATORY DATA, MICROBIOLOGY: Please see below. ASSESSMENT AND PLAN: This is a 29 yo M presenting for RLQ pain worsening past 2 days with n/v, found to have pancreatitis. Also unable to obtain Suboxone past few days due to being too intoxicated to make it to the appt, noted to be tremulous on exam in early withdrawal. Heavy drinker, last alcohol intake am of 09/14. 1. Alcoholic pancreatitis - Abd pain with Lipase 3000+, EtOH 0.043 - CT abd/pelvis unremarkable - Continue aggressive IVF and pain control; NPO 2. Alcohol abuse - Reports drinking 1L vodka/day. Cessation emphasized - Reports last drink am of 09/14; tremulous on exam - CIWA protocol with Serax 3. Polysubstance Abuse - Reports taking all drugs via all routes - Counseled on cessation. Refused rehab options, stating hes tried multiple times without success - On Suboxone chronically, has reportedly been out for the past few days - Resume Suboxone; f/u o/p with regular provider 4. Protein calorie malnutrition - BMI 16, cachectic appearing, low muscle mass - Encourage po intake when diet is advanced - Consider nutrition consult DVT prophylaxis: ambulate, mechanical DISPOSITION: admit to hospital, monitor on tele. Home Medications Scheduled Buprenorphine HCl/Naloxone HCl (Suboxone 8 mg-2 mg Sl Film) 1 Each Film, 1 STRIP SL DAILY, (Reported) Ergocalciferol (Vitamin D2) (Vitamin D2) 50,000 Units Cap, 50,000 UNITS PO 1XWK, (Reported) FRIDAY Sertraline HCl (Sertraline HCl) 100 Mg Tablet, 150 MG PO DAILY, (Reported) Scheduled PRN Hydroxyzine HCl (Hydroxyzine HCl) 25 Mg Tablet, 100 MG PO QHS PRN for SLEEP, (Reported) Allergies Coded Allergies: No Known Drug Allergies (Verified Allergy, Unknown, 07/28/19) A-FIB/CHADSVASC A-FIB History Current/History of A-Fib/PAF?: No Vital Signs Vital Signs Date Time Temp Pulse Resp B/P (MAP) Pulse Ox O2 Delivery O2 Flow Rate FiO2 09/17/19 01:16 96 125/71 09/17/19 01:06 99.0 22 96 Room Air Laboratory Data Labs 24H Laboratory Tests 2 09/16/19 20:51: Immature Granulocyte % (Auto) 0.7, Neutrophils (%) (Auto) 80.0H, Lymphocytes (%) (Auto) 5.8L, Monocytes (%) (Auto) 13.0H, Eosinophils (%) (Auto) 0.0, Basophils (%) (Auto) 0.5, Neutrophils # (Auto) 11.7H, Lymphocytes # (Auto) 0.9L, Monocytes # (Auto) 1.9H, Eosinophils # (Auto) 0.0, Basophils # (Auto) 0.1, Nucleated Red Blood Cells % (auto) 0.0, Prothrombin Time 13.6, Prothromb Time International Ratio 1.07, Activated Partial Thromboplast Time 26.7, Anion Gap 17H, Glomerular Filtration Rate > 60.0, Calcium Level 10.1, Magnesium Level 1.9, Total Bilirubin 0.8, Direct Bilirubin 0.3H, Aspartate Amino Transf (AST/SGOT) 65H, Alanine Aminotransferase (ALT/SGPT) 45, Alkaline Phosphatase 166H, Total Creatine Kinase 139, Creatine Kinase MB 1.5, Creatine Kinase MB Relative Index 1.08, Troponin I < 0.02, Total Protein 8.4H, Albumin 4.6, Albumin/Globulin Ratio 1.21, Lipase 3507H, Salicylates Level < 1.7L, Acetaminophen Level < 2.0L, Ethyl Alcohol Level 0.043H CBC/BMP Laboratory Tests 09/16/19 20:51 Plan / VTE VTE Prophylaxis Ordered?: Yes GME ATTESTATION GME ATTESTATION My faculty preceptor for this patient encounter was physically present during the encounter and was fully available. All aspects of the patient interview, examination, medical decision making process, and medical care plan development were reviewed and approved by the faculty preceptor. The faculty preceptor is aware and concurs with the plan as stated in the body of this note and will attest to such by his/her cosignature. ATTENDING NOTE I, Meredith Garrison, have independently examined this patient and performed my own physical exam, as well as reviewed the documentation and edited where necessary. I have discussed in detail with the resident / student the findings and plan of treatment as documented by the resident / student and edited their note. I agree with their findings and treatment plan and have edited their documentation. I will continue to follow the patient during this hospital stay. ELYSSA STEEL DO Sep 17, 2019 03:15 MEREDITH GARRISON MD Sep 17, 2019 04:57
[2019-09-17 07:11] LABS: AMPHETAMINES LEVEL URINE NEGATIVE (NEGATIVE); BARBITURATES URINE NEGATIVE (NEGATIVE); BENZODIAZEPINES URINE POSITIVE (NEGATIVE); CANNABINOIDS URINE NEGATIVE (NEGATIVE); COCAINE METABOLITE URINE NEGATIVE (NEGATIVE); METHADONE URINE NEGATIVE (NEGATIVE); OPIATES URINE NEGATIVE (NEGATIVE); PHENCYCLIDINE URINE NEGATIVE (NEGATIVE)
[2019-09-17 07:21] LABS: HEMATOCRIT 35.1 % (42.0-52.0); MEAN CORPUSCULAR HEMOGLOBIN 30.2 pg (27.0-33.0); MEAN CORPUSCULAR HGB CONC 34.2 g/dl (32.0-36.5); MEAN CORPUSCULAR VOLUME 88.4 fl (80.0-96.0); RED BLOOD COUNT 3.97 10^6/uL (4.30-6.10); WHITE BLOOD COUNT 8.2 10^3/uL (4.0-10.0)
[2019-09-17 07:28] LABS: PLATELET COUNT, AUTOMATED 266 10^3/uL (150-450)
[2019-09-17 07:58] LABS: ALT/SGPT 27 U/L (12-78); BILIRUBIN,DIRECT 0.3 MG/DL (0.0-0.2); BILIRUBIN,TOTAL 1.2 MG/DL (0.2-1.0); BLOOD UREA NITROGEN 17 MG/DL (7-18); CALCIUM LEVEL 7.7 MG/DL (8.5-10.1); CARBON DIOXIDE LEVEL 29 MEQ/L (21-32); CHLORIDE LEVEL 106 MEQ/L (98-107); CREATININE FOR GFR 0.52 MG/DL (0.70-1.30); GLOMERULAR FILTRATION RATE > 60.0 (>60); GLUCOSE, FASTING 82 MG/DL (70-100); MAGNESIUM LEVEL 1.7 MG/DL (1.8-2.4); POTASSIUM SERUM 3.8 MEQ/L (3.5-5.1); SODIUM LEVEL 141 MEQ/L (136-145); TOTAL PROTEIN 5.6 GM/DL (6.4-8.2)
[2019-09-17] MEDS: BUPRENORPHINE/NALOXONE 8-2MG SUBLINGUAL TABLET(SUBOXONE) SL SCH (08:36)
[2019-09-17] MEDS: NICOTINE 14 MG/24 HR TRANSDERMAL TD SCH (08:37)
[2019-09-17] MEDS: MULTIVITAMINS/MINERALS THERAP 1 TAB PO SCH (08:37)
[2019-09-17] MEDS: FOLIC ACID 1 MG TAB PO SCH (08:37)
[2019-09-17] MEDS: THIAMINE 100 MG TAB PO SCH ×2 (08:39→20:53)
[2019-09-17] MEDS: SERTRALINE 100 MG TAB PO SCH (08:39)
[2019-09-17] MEDS ORDERED: FOLIC ACID 1 MG TAB PO SCH (09:00)
[2019-09-17] MEDS ORDERED: MULTIVITAMINS/MINERALS THERAP 1 TAB PO SCH (09:00)
--- NOTE | 2019-09-17 14:01 | ECGEPIP ---
[facility] - ED Test Date: 2019-09-16 Pat Name: YADIRA SCHAEFER Department: Room: [place] [address] Gender: Male Recording Engineer: AFSHIN : 1990 Requested By: SANDRA SULLIVAN Order Number: [id number] Reading MD: Alexandra Fritz Measurements Intervals [place] Rate: 103 P: 45 OR: 84 QRS: 82 QRSD: 89 T: 73 QT: 345 QTc: 453 Interpretive Statements SINUS TACHYCARDIA WITH SHORT OR INTERVAL ABNORMAL RHYTHM ECG NSTTW abnormalities SIMILAR 07/28/19 Electronically Signed on 09-17-2019 14:00:46 EDT by Alexandra Fritz
[2019-09-17] MEDS ORDERED: MAG SULF 1GM/100ML (MAG RUN) 1 GM in IV 1 EA IV ONE (15:30)
--- NOTE | 2019-09-17 15:36 | IPNPDOC ---
Text Note Date of Service The patient was seen on 09/17/19. NOTE Subjective: -Tremulous and uncomfortable at this time, was receiving his PRN ativan, otherwise conversant without complaints. bjective: General exam: A&Ox3, NAD, uncomfortable appearing, tremulous at rest, cachectic, disheveled, pleasant, polite HEENT: NCAT, EOMI, neck supple, MMM Cardiac: regular rhythm, tachycardic, normal S1 & S2, no murmurs Respiratory: CTAB, good air exchange, no w/r/r Abdomen: Normoactive, soft, scaphoid abd, R sided tenderness in both RUQ and RLQ, no hepatosplenomegaly or abd masses Extremity: 2+ radial and dorsalis pedis pulses, no edema or calf tenderness Skin: [place], warm, dry, no visible rash. Healed abdominal scars Neuro: normal speech, motor & sensation intact. Tremulous throughout, otherwise 5/5 strength and tone in all 4 limbs Psych: Normal mood and affect LABORATORY DATA: WBC 8.2 Hgb 12 platelets 266 K 3.8 Cr 0.52 Mag 1.7 (repleted) lipase at admission was 3507 ASSESSMENT: 29 yo M with alcohol use disorder who presented with RLQ pain worsening past 2 days with n/v, found to have alcoholic pancreatitis, reporting LFTU with his PCP Dr. Kyle Forbes who writes for his suboxone in the setting of being too intoxicated to make it to the appt and found to be in alcohol withdrawal. 1. Alcoholic pancreatitis - Abd pain with Lipase 3000+, EtOH 0.043 - CT abd/pelvis unremarkable - Continue aggressive IVF and pain control - remains NPO at this time 2. Alcohol use disorder: Reports drinking 1L vodka/day. - Cessation emphasized - Reports last drink am of 09/14; tremulous on exam - CIWA protocol with Serax, and continues to require all PRNs at this time 3. Polysubstance Abuse: Reported to the admitting team that he takes all drugs via all routes - Counseled on cessation. Refused rehab options, stating hes tried multiple ti mes without success - On Suboxone chronically, has reportedly been out for the past few days after h e did not present to provider appt - Resume Suboxone; f/u o/p with regular provider 4. Protein calorie malnutrition - BMI 16, cachectic appearing, low muscle mass - Encourage po intake when diet is advanced - nutrition consult placed DVT prophylaxis: ambulate, mechanical DISPOSITION: ongoing medical treatment for alcohol withdrawal, PCU. VS,Fishbone, I+O VS, Fishbone, I+O Laboratory Tests 09/16/19 20:51 09/17/19 07:09 Vital Signs Date Time Temp Pulse Resp B/P (MAP) Pulse Ox O2 Delivery O2 Flow Rate FiO2 09/17/19 13:28 98.6 09/17/19 12:00 114 16 140/72 (94) 97 Room Air I&O- Last 24 Hours up to 6 AM 09/17/19 05:59 Intake Total 2010.2 ml Output Total 0 ml Balance 2010.2 ml BILL CASTAÑEDA MD Sep 17, 2019 15:36
[2019-09-18] VITALS (8 sets, daily range): BP systolic 116–137; BP diastolic 67–92
[2019-09-18] MEDS: LORazepam 2 MG TAB PO PRN ×5 (00:45→20:34)
[2019-09-18] MEDS: OXAZEPAM 10 MG CAP PO SCH ×4 (00:45→17:08)
[2019-09-18] MEDS: NS 1,000 ML IV SCH ×5 (01:50→15:31)
[2019-09-18] MEDS: KETOROLAC 30 MG/ML 1ML VIAL IV SCH ×5 (03:33→20:44)
[2019-09-18 06:40] LABS: HEMATOCRIT 36.6 % (42.0-52.0); HEMOGLOBIN 12.2 g/dl (13.5-17.5); MEAN CORPUSCULAR HEMOGLOBIN 30.3 pg (27.0-33.0); MEAN CORPUSCULAR HGB CONC 33.3 g/dl (32.0-36.5); MEAN CORPUSCULAR VOLUME 90.8 fl (80.0-96.0); PLATELET COUNT, AUTOMATED 241 10^3/uL (150-450); RED BLOOD COUNT 4.03 10^6/uL (4.30-6.10); WHITE BLOOD COUNT 8.6 10^3/uL (4.0-10.0)
[2019-09-18 07:01] LABS: BLOOD UREA NITROGEN 9 MG/DL (7-18); CALCIUM LEVEL 8.1 MG/DL (8.5-10.1); CARBON DIOXIDE LEVEL 23 MEQ/L (21-32); CHLORIDE LEVEL 106 MEQ/L (98-107); CREATININE FOR GFR 0.43 MG/DL (0.70-1.30); GLOMERULAR FILTRATION RATE > 60.0 (>60); GLUCOSE, FASTING 50 MG/DL (70-100); LIPASE 797 U/L (73-393); POTASSIUM SERUM 3.8 MEQ/L (3.5-5.1); SODIUM LEVEL 140 MEQ/L (136-145)
[2019-09-18] MEDS: FOLIC ACID 1 MG TAB PO SCH (08:59)
[2019-09-18] MEDS: SERTRALINE 100 MG TAB PO SCH (08:59)
[2019-09-18] MEDS: MULTIVITAMINS/MINERALS THERAP 1 TAB PO SCH (08:59)
[2019-09-18] MEDS: BUPRENORPHINE/NALOXONE 8-2MG SUBLINGUAL TABLET(SUBOXONE) SL SCH (08:59)
[2019-09-18] MEDS: THIAMINE 100 MG TAB PO SCH ×2 (08:59→20:34)
[2019-09-18] MEDS: NICOTINE 14 MG/24 HR TRANSDERMAL TD SCH (09:00)
--- NOTE | 2019-09-18 12:19 | IPNPDOC ---
Text Note Date of Service The patient was seen on 09/18/19. NOTE Subjective: -appears more comfortable this AM than yesterday, still requiring significant PRN benzos for withdrawal Objective: General exam: A&Ox3, NAD, cachectic, conversational HEENT: NCAT, EOMI, neck supple, MMM Cardiac: regular rhythm, tachycardic, normal S1 & S2, no murmurs Respiratory: CTAB, good air exchange, no w/r/r Abdomen: Normoactive, soft, scaphoid abd, non tender abdomen this AM, no hepatosplenomegaly or abd masses Extremity: 2+ radial and dorsalis pedis pulses, no edema or calf tenderness Skin: [place], warm, dry, no visible rash. Healed abdominal scars Neuro: normal speech, motor & sensation intact. 5/5 strength and tone in all 4 limbs. Tremulous Psych: Normal mood and affect LABORATORY DATA: lipase now downtrended to 797. CBC and BMP wnl ASSESSMENT: 29 yo M with alcohol use disorder who presented with RLQ pain worsening past 2 days with n/v, found to have alcoholic pancreatitis, reporting LFTU with his PCP Dr. Kyle Forbes who writes for his suboxone in the setting of being too intoxicated to make it to the appt and found to be in alcohol withdr awal. 1. Alcoholic pancreatitis - Abd pain with admission Lipase 3000+, EtOH 0.043 - CT abd/pelvis unremarkable - Continue aggressive IVF and pain control, much improved - will advance diet at tolerated starting this AM with clear liquids for breakfast 2. Alcohol use disorder: Reports drinking 1L vodka/day. - Cessation emphasized - Reports last drink am of 09/14 - CIWA protocol with Serax, and continues to require PRNs at this time 3. Polysubstance Abuse: Reported to the admitting team that he takes all drugs via all routes - Counseled on cessation. Refused rehab options, stating hes tried multiple times without success - On Suboxone chronically, has reportedly been out for the past few days after he did not present to provider appt - Resume Suboxone; will plan for f/u o/p with regular provider 4. Protein calorie malnutrition - BMI 16, cachectic appearing, low muscle mass - Encourage po intake when diet is advanced - nutrition consult placed DVT prophylaxis: ambulate, mechanical DISPOSITION: ongoing medical treatment for alcohol withdrawal, PCU. VS,Fishbone, I+O VS, Fishbone, I+O Laboratory Tests 09/18/19 06:05 Vital Signs Date Time Temp Pulse Resp B/P (MAP) Pulse Ox O2 Delivery O2 Flow Rate FiO2 09/18/19 07:49 98.9 87 20 118/72 (87) 95 Room Air I&O- Last 24 Hours up to 6 AM 09/18/19 06:00 Intake Total 4630 ml Output Total 3120 ml Balance 1510 ml BILL CASTAÑEDA MD Sep 18, 2019 08:03
[2019-09-19] VITALS (9 sets, daily range): BP systolic 119–133; BP diastolic 75–93
[2019-09-19] MEDS: OXAZEPAM 10 MG CAP PO SCH ×3 (00:29→13:07)
[2019-09-19] MEDS: LORazepam 2 MG TAB PO PRN ×4 (00:29→22:03)
[2019-09-19] MEDS: KETOROLAC 30 MG/ML 1ML VIAL IV SCH ×4 (01:37→20:15)
[2019-09-19 05:47] LABS: HEMATOCRIT 36.5 % (42.0-52.0); HEMOGLOBIN 12.6 g/dl (13.5-17.5); MEAN CORPUSCULAR HEMOGLOBIN 30.5 pg (27.0-33.0); MEAN CORPUSCULAR HGB CONC 34.5 g/dl (32.0-36.5); MEAN CORPUSCULAR VOLUME 88.4 fl (80.0-96.0); PLATELET COUNT, AUTOMATED 212 10^3/uL (150-450); RED BLOOD COUNT 4.13 10^6/uL (4.30-6.10); WHITE BLOOD COUNT 6.9 10^3/uL (4.0-10.0)
[2019-09-19 06:01] LABS: BLOOD UREA NITROGEN 4 MG/DL (7-18); CALCIUM LEVEL 8.7 MG/DL (8.5-10.1); CARBON DIOXIDE LEVEL 31 MEQ/L (21-32); CHLORIDE LEVEL 103 MEQ/L (98-107); CREATININE FOR GFR 0.52 MG/DL (0.70-1.30); GLOMERULAR FILTRATION RATE > 60.0 (>60); GLUCOSE, FASTING 181 MG/DL (70-100); POTASSIUM SERUM 3.2 MEQ/L (3.5-5.1); SODIUM LEVEL 140 MEQ/L (136-145)
[2019-09-19] MEDS: MULTIVITAMINS/MINERALS THERAP 1 TAB PO SCH (08:48)
[2019-09-19] MEDS: NICOTINE 14 MG/24 HR TRANSDERMAL TD SCH (08:49)
[2019-09-19] MEDS: SERTRALINE 100 MG TAB PO SCH (08:49)
[2019-09-19] MEDS: BUPRENORPHINE/NALOXONE 8-2MG SUBLINGUAL TABLET(SUBOXONE) SL SCH (08:49)
[2019-09-19] MEDS: THIAMINE 100 MG TAB PO SCH ×2 (08:49→20:16)
[2019-09-19] MEDS: FOLIC ACID 1 MG TAB PO SCH (08:49)
[2019-09-19] MEDS ORDERED: POTASSIUM CHLORIDE 10 MEQ SR TABLET PO ONE (10:00)
[2019-09-19 10:25] LABS: MAGNESIUM LEVEL 1.9 MG/DL (1.8-2.4)
--- NOTE | 2019-09-19 12:00 | IPNPDOC ---
Text Note Date of Service The patient was seen on 09/19/19. NOTE Subjective: -appears more comfortable than the last 2 mornings -tolerated regular diet now and fluids were stopped -No more episodes of urinary retention Objective: General exam: A&Ox3, NAD, cachectic, conversational HEENT: NCAT, EOMI, neck supple, MMM Cardiac: regular rhythm, tachycardic, normal S1 & S2, no murmurs Respiratory: CTAB, good air exchange, no w/r/r Abdomen: Normoactive, soft, scaphoid abd, no tenderness, no hepatosplenomegaly or abd masses Extremity: 2+ radial and dorsalis pedis pulses, no edema or calf tenderness Skin: [place], warm, dry, no visible rash. Healed abdominal scars Neuro: normal speech, motor & sensation intact. 5/5 strength and tone in all 4 limbs. Psych: Normal mood and affect LABORATORY DATA: CBC wnl K 3.2 Cr 0.52 ASSESSMENT: 29 yo M with alcohol use disorder who presented with RLQ pain worsening past 2 days with n/v, found to have alcoholic pancreatitis, reporting LFTU with his PCP Dr. Kyle Forbes who writes for his suboxone in the setting of being too intoxicated to make it to the appt and found to be in alcohol withdrawal. 1. Alcoholic pancreatitis - Abd pain with admission Lipase 3000+, EtOH 0.043 - CT abd/pelvis unremarkable - Pain much improved to just discomfort at this point, tolerating a regular diet - Fluids were discontinued overnight 2. Alcohol use disorder: Reports drinking 1L vodka/day. - Cessation emphasized - Reports last drink am of 09/14 - CIWA protocol, continue standing serax, and will monitor PRN requirements 3. Polysubstance Abuse: Reported to the admitting team that he takes all drugs via all routes - Counseled on cessation. Refused rehab options, stating hes tried multiple times without success - On Suboxone chronically, has reportedly been out for the past few days after he did not present to provider appt - Resume Suboxone; will plan for f/u o/p with regular provider 4. Protein calorie malnutrition - BMI 16, cachectic appearing, low muscle mass - Encourage po intake when diet is advanced - nutrition consult placed DVT prophylaxis: ambulate, mechanical DISPOSITION: ongoing medical treatment for alcohol withdrawal, PCU. VS,Fishbone, I+O VS, Fishbone, I+O Laboratory Tests 09/19/19 05:12 Vital Signs Date Time Temp Pulse Resp B/P (MAP) Pulse Ox O2 Delivery O2 Flow Rate FiO2 09/19/19 08:00 71 122/82 09/19/19 07:31 98.0 18 95 Room Air I&O- Last 24 Hours up to 6 AM 09/19/19 06:00 Intake Total 4280 ml Output Total 4300 ml Balance -20 ml BILL CASTAÑEDA MD Sep 19, 2019 09:20
[2019-09-19] MEDS ORDERED: SLF 3 ML SYR IV PRN (17:15)
[2019-09-19] MEDS: hydrOXYzine 25 MG TAB PO PRN (20:15)
[2019-09-19] MEDS: SLF 3 ML SYR IV SCH (21:08)
[2019-09-20] VITALS: BP 114/76
[2019-09-20] MEDS ORDERED: RAMELTEON 8 MG TAB (ROZEREM) PO ONE (00:45)
[2019-09-20] MEDS: KETOROLAC 30 MG/ML 1ML VIAL IV SCH ×2 (03:08→09:06)
[2019-09-20] MEDS: LORazepam 2 MG TAB PO PRN (03:09)
[2019-09-20 04:00] VITALS: BP 115/76
[2019-09-20] MEDS: SLF 3 ML SYR IV SCH (05:16)
[2019-09-20 06:39] LABS: HEMATOCRIT 36.8 % (42.0-52.0); HEMOGLOBIN 12.8 g/dl (13.5-17.5); MEAN CORPUSCULAR HEMOGLOBIN 30.8 pg (27.0-33.0); MEAN CORPUSCULAR HGB CONC 34.8 g/dl (32.0-36.5); MEAN CORPUSCULAR VOLUME 88.7 fl (80.0-96.0); PLATELET COUNT, AUTOMATED 228 10^3/uL (150-450); RED BLOOD COUNT 4.15 10^6/uL (4.30-6.10)
[2019-09-20 07:07] LABS: BLOOD UREA NITROGEN 11 MG/DL (7-18); CALCIUM LEVEL 9.7 MG/DL (8.5-10.1); CARBON DIOXIDE LEVEL 30 MEQ/L (21-32); CHLORIDE LEVEL 102 MEQ/L (98-107); CREATININE FOR GFR 0.67 MG/DL (0.70-1.30); GLOMERULAR FILTRATION RATE > 60.0 (>60); GLUCOSE, FASTING 125 MG/DL (70-100); POTASSIUM SERUM 3.9 MEQ/L (3.5-5.1); SODIUM LEVEL 139 MEQ/L (136-145)
[2019-09-20 08:00] VITALS: BP 120/71
[2019-09-20] MEDS: FOLIC ACID 1 MG TAB PO SCH (09:02)
[2019-09-20] MEDS: MULTIVITAMINS/MINERALS THERAP 1 TAB PO SCH (09:02)
[2019-09-20] MEDS: NICOTINE 14 MG/24 HR TRANSDERMAL TD SCH (09:02)
[2019-09-20] MEDS: BUPRENORPHINE/NALOXONE 8-2MG SUBLINGUAL TABLET(SUBOXONE) SL SCH (09:02)
[2019-09-20] MEDS: SERTRALINE 100 MG TAB PO SCH (09:03)
--- NOTE | 2019-09-20 17:33 | DS.PDOC ---
Discharge Summary General Date of Admission Sep 16, 2019 at 22:42 Date of Discharge 09/20/2019 Attending Physician: BILL CASTAÑEDA MD Discharge Summary PROCEDURES PERFORMED DURING STAY: None ADMITTING DIAGNOSES: 1. Alcohol dependence with withdrawal 2. Alcoholic pancreatitis DISCHARGE DIAGNOSES: 1. Alcohol dependence with withdrawal 2. Alcoholic pancreatitis 3. Protein calorie malnutrition 4. PSUD COMPLICATIONS/CHIEF COMPLAINT: Alcohol Withdrawal. HISTORY OF PRESENT ILLNESS: 29-year-old man who presented with worsening right-sided flank pain with associated nausea and vomiting without any hematemesis, lightheadedness, in the setting of recent binge alcohol consumption and having missed an appointment with his provider that prescribes his suboxone due to intoxication. HOSPITAL COURSE: In ER, he was found to have an unremarkable CT of abd/pelvis, elevated lipase 3000+, WBC 14, CHINO 0.043 and was admitted for alcoholic pancreatitis treatment & alcohol dependence with withdrawal management. He was started on fluids and the CIWA protocol with standing serax and PRN ativan with gradual improvement of his symptoms, with resolution of his abdominal pain, downtrending of his lipase and was able to tolerate food and restored to a normal diet. Meanwhile his tremors improved and his alcohol withdrawal symptoms resolved and benzodiazepines discontinued. I am now discharging him home with close follow up with Kyle Forbes, his outpatient provider in 2 days and in the meantime called his clinic that arranged a 2 day script of suboxone for him for the next two days until he can be assessed in clinic for further treatment. While inpatient, I counselled him on abstinence from alcohol as well as other substances and the deleterious effects of smoking, and he expressly stated no desire to quit smoking and consuming alcohol and other illicit substances. DISCHARGE MEDICATIONS: Please see below. ALLERGIES: Please see below. PHYSICAL EXAMINATION ON DISCHARGE: VITAL SIGNS: Please see below. General exam: A&Ox3, NAD, cachectic, conversational HEENT: NCAT, EOMI, neck supple, MMM Cardiac: regular rhythm, tachycardic, normal S1 & S2, no murmurs Respiratory: CTAB, good air exchange, no w/r/r Abdomen: Normoactive, soft, scaphoid abd, no tenderness, no hepatosplenomegaly or abd masses Extremity: 2+ radial and dorsalis pedis pulses, no edema or calf tenderness Skin: [place], warm, dry, no visible rash. Healed abdominal scars Neuro: normal speech, motor & sensation intact. 5/5 strength and tone in all 4 limbs. Psych: Normal mood and affect LABORATORY DATA: Please see below. IMAGING: Abdominal US: Multiple nonobstructing left renal calculi. Right kidney is unremarkable. Fatty liver. No acute findings. CT A/P: Liver: Liver measures 18 cm and is mildly large. Hepatic steatosis. Gallbladder and bile ducts: Normal. No calcified stones. No ductal dilation. Pancreas: Normal. No ductal dilation. Spleen: Normal. No splenomegaly. Adrenals: Normal. No mass. Kidneys and ureters: Multiple nonobstructing calculi in the left kidney with the largest measuring 7 mm in the midpole of left kidney. Stomach and bowel: Unremarkable. No obstruction. No mucosal thickening. Appendix: No evidence of appendicitis. Intraperitoneal space: Unremarkable. No free air. No significant fluid collection. Vasculature: Unremarkable. No abdominal aortic aneurysm. Lymph nodes: Unremarkable. No enlarged lymph nodes. Bladder: Unremarkable as visualized. Reproductive: Unremarkable as visualized. Bones/joints: Unremarkable. No acute fracture. Soft tissues: Unremarkable. IMPRESSION: No acute abdominal or pelvic abnormality. PROGNOSIS: Good, if abstinent from alcohol and illicit drug use ACTIVITY: As tolerated DIET: Regular DISCHARGE PLAN: Home with PCP follow up DISPOSITION: 01 Home, Self-Care. DISCHARGE INSTRUCTIONS: 1. Please present for your follow up appointment with Kyle Forbes on 09/21 ITEMS TO FOLLOWUP ON ON OUTPATIENT: 1. PSUD DISCHARGE CONDITION: Stable TIME SPENT ON DISCHARGE: 32 minutes. Vital Signs/I&Os Vital Signs Date Time Temp Pulse Resp B/P (MAP) Pulse Ox O2 Delivery O2 Flow Rate FiO2 09/20/19 08:00 98.2 84 19 120/71 (87) 97 Room Air I&O- Last 24 Hours up to 6 AM 09/20/19 05:59 Intake Total 1500 ml Output Total 525 ml Balance 975 ml Laboratory Data Labs 24H Laboratory Tests 2 09/20/19 06:13: Nucleated Red Blood Cells % (auto) 0.0, Anion Gap 7L, Glomerular Filtration Rate > 60.0, Calcium Level 9.7 CBC/BMP Laboratory Tests 09/20/19 06:13 Discharge Medications Scheduled Buprenorphine HCl/Naloxone HCl (Suboxone 8 mg-2 mg Sl Film) 1 Each Film, 1 STRIP SL DAILY, (Reported) Ergocalciferol (Vitamin D2) (Vitamin D2) 50,000 Units Cap, 50,000 UNITS PO 1XWK, (Reported) FRIDAY Sertraline HCl (Sertraline HCl) 100 Mg Tablet, 150 MG PO DAILY, (Reported) Scheduled PRN Hydroxyzine HCl (Hydroxyzine HCl) 25 Mg Tablet, 100 MG PO QHS PRN for SLEEP, (Reported) Allergies Coded Allergies: No Known Drug Allergies (Verified Allergy, Unknown, 07/28/19) BILL CASTAÑEDA MD Sep 20, 2019 17:33
== END 2019-09-20 10:15 | disposition home or self-care (01) | DRG 775 ==
LOC: M ED 20:26 → M ED INP 22:42 → ENRESERV 23:11 → M PCU 09-17 01:12
PROVIDERS: ADMIT Internal Medicine; ATTEND Internal Medicine
DX: F10.239 Alcohol dependence with withdrawal, unspecified (principal); K85.20 Alcohol induced acute pancreatitis without necrosis or infection; E46 Unspecified protein-calorie malnutrition; F19.10 Other psychoactive substance abuse, uncomplicated; F17.200 Nicotine dependence, unspecified, uncomplicated; N20.0 Calculus of kidney; Z68.1 Body mass index [BMI] 19.9 or less, adult; Z79.899 Other long term (current) drug therapy; Z56.0 Unemployment, unspecified

== ENCOUNTER 2019-10-02 16:09 | Inpatient (IN) | payer OTHER ==
[~2019-10-02] VITALS: Ht 170.2 cm; Wt 51.1 kg
[2019-10-02 16:50] LABS: BASO # 0.1 10^3/uL (0.0-0.2); BASO % 0.7 % (0.0-1.0); HEMATOCRIT 41.8 % (42.0-52.0); HEMOGLOBIN 14.3 g/dl (13.5-17.5); LYMPH # 0.7 10^3/uL (1.5-5.0); LYMPH % 5.9 % (24.0-44.0); MEAN CORPUSCULAR HEMOGLOBIN 30.2 pg (27.0-33.0); MEAN CORPUSCULAR HGB CONC 34.2 g/dl (32.0-36.5); MEAN CORPUSCULAR VOLUME 88.2 fl (80.0-96.0); MONO # 0.9 10^3/uL (0.0-0.8); NEUTROPHILS # 10.5 10^3/uL (1.5-8.5); NEUTROPHILS % 85.7 % (36.0-66.0); PLATELET COUNT, AUTOMATED 285 10^3/uL (150-450); RED BLOOD COUNT 4.74 10^6/uL (4.30-6.10); WHITE BLOOD COUNT 12.3 10^3/uL (4.0-10.0)
[2019-10-02] MEDS ORDERED: KETOROLAC 30 MG/ML 1ML VIAL IV ONE (17:00)
[2019-10-02] MEDS ORDERED: NS 1,000 ML IV ONE (17:00)
[2019-10-02] MEDS ORDERED: PANTOPRAZOLE 40MG VIAL (C9113 PER 1) IV ONE (17:00)
[2019-10-02] MEDS ORDERED: OXAZEPAM 15 MG CAP PO ONE (17:00)
[2019-10-02] MEDS ORDERED: ONDANSETRON 4MG/2ML VIAL IV ONE (17:00)
[2019-10-02 17:02] LABS: INR 1.05; PROTHROMBIN TIME 13.4 SECONDS (11.8-14.0)
[2019-10-02 17:15] LABS: ALBUMIN 4.5 GM/DL (3.2-5.2); ALT/SGPT 42 U/L (12-78); AMYLASE 340 U/L (25-115); BILIRUBIN,DIRECT 0.3 MG/DL (0.0-0.2); BILIRUBIN,TOTAL 0.9 MG/DL (0.2-1.0); BLOOD UREA NITROGEN 20 MG/DL (7-18); CALCIUM LEVEL 10.1 MG/DL (8.5-10.1); CARBON DIOXIDE LEVEL 31 MEQ/L (21-32); CHLORIDE LEVEL 95 MEQ/L (98-107); CREATININE FOR GFR 0.85 MG/DL (0.70-1.30); ETHYL ALCOHOL (ETHANOL) < 0.003 % (0.000-0.010); GLOMERULAR FILTRATION RATE > 60.0 (>60); GLUCOSE, FASTING 177 MG/DL (70-100); LIPASE 3229 U/L (73-393); POTASSIUM SERUM 3.7 MEQ/L (3.5-5.1); SODIUM LEVEL 139 MEQ/L (136-145); TOTAL PROTEIN 8.2 GM/DL (6.4-8.2)
[2019-10-02 18:47] LABS: AMPHETAMINES LEVEL URINE NEGATIVE (NEGATIVE); BARBITURATES URINE NEGATIVE (NEGATIVE); BENZODIAZEPINES URINE NEGATIVE (NEGATIVE); CANNABINOIDS URINE NEGATIVE (NEGATIVE); COCAINE METABOLITE URINE NEGATIVE (NEGATIVE); METHADONE URINE NEGATIVE (NEGATIVE); OPIATES URINE NEGATIVE (NEGATIVE); PHENCYCLIDINE URINE NEGATIVE (NEGATIVE)
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
[2019-10-02] MEDS ORDERED: MORPHINE 2 MG/ML 1ML VIAL (J2270) IV PRN (19:30)
[2019-10-02] MEDS: NS 1,000 ML IV SCH (20:43)
[2019-10-02] MEDS: THIAMINE 100 MG TAB PO SCH (20:46)
[2019-10-02 20:49] VITALS: BP 142/92
[2019-10-02 21:00] VITALS: BP 142/92
[2019-10-02] MEDS: hydrOXYzine 25 MG TAB PO PRN (21:28)
[2019-10-02] MEDS: LORazepam 2 MG TAB PO PRN (21:28)
[2019-10-02] MEDS: NICOTINE 7 MG/24 HR TRANSDERMAL TD SCH (21:28)
[2019-10-02] MEDS ORDERED: KETOROLAC TROMETHAMINE 10 MG TAB PO PRN (22:30)
[2019-10-02] MEDS ORDERED: ONDANSETRON 4 MG ORAL DISINTEGRATING TAB PO PRN (23:15)
[2019-10-02 23:22] LABS: LDH LACTATE DEHYDROGENASE 221 U/L (87-241)
--- NOTE | 2019-10-02 23:59 | REPVR ---
PROCEDURE INFORMATION: Exam: US Abdomen Limited, Right Upper Quadrant Exam date and time: 10/02/2019 11:54 PM Age: 29 years old Clinical indication: Abdominal pain; Acute; Additional info: Transaminitis in PT w pancreatitis TECHNIQUE: Imaging protocol: Real-time ultrasound of the abdomen with image documentation. Examination was focused on the right upper quadrant. COMPARISON: ABD COMPLETE US 2019-09-16 23:34 FINDINGS: Liver: Hepatic echogenicity, evidence for hepatic steatosis. Gallbladder: Normal gallbladder. Common bile duct: Normal. No stones. No dilation. Pancreas: Coarsened echotexture of the pancreatic body and tail, could indicate acute pancreatitis. Right kidney: Normal 10.3 cm right kidney. IMPRESSION: 1. Hepatic echogenicity, evidence for hepatic steatosis. 2. Coarsened echotexture of the pancreatic body and tail, could indicate acute pancreatitis. Recommend follow-up. Electronically signed by: Rey Guerrero On 10/02/2019 23:59:43 PM
[2019-10-03] VITALS (10 sets, daily range): BP systolic 103–145; BP diastolic 77–89
[2019-10-03] MEDS: LORazepam 2 MG TAB PO PRN ×5 (01:06→22:27)
[2019-10-03] MEDS: NS 1,000 ML IV SCH ×3 (05:13→22:08)
[2019-10-03 05:54] LABS: HEMATOCRIT 36.9 % (42.0-52.0); HEMOGLOBIN 12.4 g/dl (13.5-17.5); MEAN CORPUSCULAR HEMOGLOBIN 30.5 pg (27.0-33.0); MEAN CORPUSCULAR HGB CONC 33.6 g/dl (32.0-36.5); MEAN CORPUSCULAR VOLUME 90.9 fl (80.0-96.0); PLATELET COUNT, AUTOMATED 208 10^3/uL (150-450); RED BLOOD COUNT 4.06 10^6/uL (4.30-6.10); WHITE BLOOD COUNT 8.5 10^3/uL (4.0-10.0)
[2019-10-03 06:44] LABS: ALBUMIN 3.2 GM/DL (3.2-5.2); ALT/SGPT 29 U/L (12-78); BILIRUBIN,TOTAL 0.9 MG/DL (0.2-1.0); BLOOD UREA NITROGEN 17 MG/DL (7-18); CALCIUM LEVEL 8.1 MG/DL (8.5-10.1); CARBON DIOXIDE LEVEL 33 MEQ/L (21-32); CHLORIDE LEVEL 101 MEQ/L (98-107); CREATININE FOR GFR 0.62 MG/DL (0.70-1.30); GLOMERULAR FILTRATION RATE > 60.0 (>60); GLUCOSE, FASTING 80 MG/DL (70-100); MAGNESIUM LEVEL 1.8 MG/DL (1.8-2.4); POTASSIUM SERUM 3.2 MEQ/L (3.5-5.1); SODIUM LEVEL 140 MEQ/L (136-145); TOTAL PROTEIN 6.1 GM/DL (6.4-8.2)
[2019-10-03] MEDS ORDERED: KCL 10MEQ/100ML SWI (KRUN) 10 MEQ in IV 1 EA IV ONE (08:00)
[2019-10-03] MEDS: THIAMINE 100 MG TAB PO SCH ×2 (08:36→20:16)
--- NOTE | 2019-10-03 08:36 | REP ---
REASON: Abdominal pain. PRIORS: None. The accompanying frontal view of the chest is normal. There is no subdiaphragmatic air. The bowel loops are within normal limits. There is no evidence of intestinal obstruction. Multiple calcifications are seen superimposed over the left nephric silhouette, known to be left renal calculi from previous CT 09/16/2019. The osseous structures are normal. IMPRESSION: Left renal calculi. Nonspecific intestinal gas pattern. Electronically Signed by Aren Mascorro DO 10/03/2019 08:40 A
[2019-10-03] MEDS ORDERED: POTASSIUM CHLORIDE 10 MEQ SR TABLET PO ONE (09:00)
[2019-10-03] MEDS ORDERED: BUPRENORPHINE/NALOXONE 8-2MG SUBLINGUAL TABLET(SUBOXONE) SL SCH ×2 (09:00)
[2019-10-03] MEDS ORDERED: MULTIVITAMINS/MINERALS THERAP 1 TAB PO SCH (09:00)
[2019-10-03] MEDS ORDERED: FOLIC ACID 1 MG TAB PO SCH (09:00)
[2019-10-03] MEDS ORDERED: SERTRALINE 100 MG TAB PO SCH (09:00)
--- NOTE | 2019-10-03 09:49 | IPNPDOC ---
Date Seen The patient was seen on 10/03/19. Progress Note SUBJECTIVE: Patient reports right-sided chest pain, ultrasound abdomen reveals hepatic steatosis, and acute pancreatitis, right kidney appears normal, normal gallbladder. Does report 6 out of 10 abdominal pain but otherwise controlled. OBJECTIVE PHYSICAL EXAMINATION: VITAL SIGNS: Please see below. GENERAL: male No distress, appears tremulous HEENT: Normocephalic, atraumatic, moist mucous membranes NECK: Supple CARDIOVASCULAR EXAMINATION: S1, S2 Chest: Pectus excavatum RESPIRATORY EXAMINATION: CTAB ABDOMINAL EXAMINATION: Soft, nontender, nondistended, positive bowel sounds EXTREMITIES: no edema SKIN: No rash NEUROLOGICAL EXAMINATION: Awake PSYCHIATRIC EXAMINATION: Flat affect LABORATORY DATA, IMAGING STUDIES, MICROBIOLOGY: Please see below. ASSESSMENT AND PLAN: Pt is a 29-yoM with a PMH of ETOH induced-pancreatitis, nephrolithiasis s/p stent, and hx of polysubstance abuse (on suboxone) is admitted for management of acute pancreatitis & alcohol withdrawal. #Acute Pancreatitis secondary to ETOH with SIRS -ethanol was undetectable, UDS was negative -Ransons Criteria to predict mortality in pts w Pancreatitis at admission = 1 point = 1 % predicted mortality -He received Toradol, Zofran, and IV fluids in the ER, will continue Toradol when necessary for severe pain, hold morphine at this time d/t hx of substance abuse, continue IVF, patient denies current nausea #SIRS likely reactive d/t pancreatitis SIRS criterial include HR >90 / WBC >12 / RR >20 QSofa Score = 1point = not high risk -cont Dr. Knox's plan: telemetry / Sepsis protocol w lactic / IVF /f/u blood cx / Acetaminophen PRN for fever / target MAP 65 to 70 / f/u Is and Os with target UOP of atleast 0.5 ml/kg/H / target serum glucose 140-180 while acutely ill #Alcohol withdrawal, received oxazepam in the ER -cont Dr. Knox's plan: telemetry / seizure precautions / fall precautions / Thiamine 100mg daily, Folic acid 1mg daily, MV and Ativan per CIWA protocol / IVF / Zofran ODT PRN for n/v /social work consult for referral to AA or other local support group #Right-sided pain, will obtain chest x-ray, abdominal ultrasound reveals hepatic steatosis, no gallbladder abnormalities, negative Joshi sign #Hypokalemia, replace, magnesium level within normal limits, we'll continue to monitor #History of polysubstance abuse: Continue home dose of Suboxone #Mood disorder: Continue home SSRI #Tobacco abuse - smoking cessation education, nicotine patch #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, nuclear criticality safety engineer consult #Marfanoid habitus - can f/u w PCP to review family hx and determine if referral to cyber security is appropriate DVT PROPHYLAXIS: Lovenox DISPOSITION: Home after more than 2 midnight's stay VS, I&O, 24H, Fishbone Vital Signs/I&O Vital Signs Date Time Temp Pulse Resp B/P (MAP) Pulse Ox O2 Delivery O2 Flow Rate FiO2 10/03/19 08:00 99.5 84 20 120/80 (93) 95 Room Air I&O- Last 24 Hours up to 6 AM 10/03/19 06:00 Intake Total 2900 ml Output Total 0 ml Balance 2900 ml Laboratory Data 24H LABS Laboratory Tests 2 10/02/19 16:32: Immature Granulocyte % (Auto) 0.7, Neutrophils (%) (Auto) 85.7H, Lymphocytes (%) (Auto) 5.9L, Monocytes (%) (Auto) 7.0H, Eosinophils (%) (Auto) 0.0, Basophils (%) (Auto) 0.7, Neutrophils # (Auto) 10.5H, Lymphocytes # (Auto) 0.7L, Monocytes # (Auto) 0.9H, Eosinophils # (Auto) 0.0, Basophils # (Auto) 0.1, Nucleated Red Blood Cells % (auto) 0.0, Prothrombin Time 13.4, Prothromb Time International Ratio 1.05, Anion Gap 13, Glomerular Filtration Rate > 60.0, Calcium Level 10.1, Total Bilirubin 0.9, Direct Bilirubin 0.3H, Aspartate Amino Transf (AST/SGOT) 46H, Alanine Aminotransferase (ALT/SGPT) 42, Alkaline Phosphatase 183H, Lactate Dehydrogenase 221, Total Protein 8.2, Albumin 4.5, Albumin/Globulin Ratio 1.22, Amylase Level 340H, Lipase 3229H, Ethyl Alcohol Level < 0.003 10/02/19 18:16: Urine Color YELLOW, Urine Appearance CLEAR, Urine pH 8.0, Urine Specific [place] 1.023, Urine Protein 2+H, Urine Glucose (UA) NEGATIVE, Urine Ketones NEGATIVE, Urine Blood 2+H, Urine Nitrite NEGATIVE, Urine Bilirubin NEGATIVE, Urine Urobi linogen 0.2, Urine Leukocyte Esterase NEGATIVE, Urine WBC (Auto) 2, Urine RBC (Auto) 16H, Urine Hyaline Casts (Auto) 0, Urine Bacteria (Auto) NEGATIVE, Urine Squamous Epithelial Cells 0, Urine Mucus (Auto) SMALL, Urine Sperm (Auto) , Urine Opiates Screen NEGATIVE, Urine Methadone Screen NEGATIVE, Urine Barbiturates Screen NEGATIVE, Urine Phencyclidine Screen NEGATIVE, Urine Amphetamines Screen NEGATIVE, Urine Benzodiazepines Screen NEGATIVE, Urine Cocaine Metabolite Screen NEGATIVE, Urine Cannabinoids Screen NEGATIVE 10/02/19 20:07: Lactic Acid Level 1.2 10/03/19 05:26: Nucleated Red Blood Cells % (auto) 0.0 10/03/19 05:27: Anion Gap 6L, Glomerular Filtration Rate > 60.0, Calcium Level 8.1#L, Magnesium Level 1.8, Total Bilirubin 0.9, Aspartate Amino Transf (AST/SGOT) 30, Alanine Aminotransferase (ALT/SGPT) 29, Alkaline Phosphatase 138H, Total Protein 6.1#L, Albumin 3.2#, Albumin/Globulin Ratio 1.10 CBC/BMP Laboratory Tests 10/02/19 16:32 10/03/19 05:26 10/03/19 05:27 Microbiology Microbiology 10/02/19 Blood Culture, Received Pending ARMIN DUMONT MD October 03, 2019 09:33
--- NOTE | 2019-10-03 10:23 | REP ---
TWO-VIEW CHEST: REASON: Right-sided chest pain. COMPARISON: No priors. FINDINGS: The superior mediastinal structures are midline. The cardiac silhouette is unremarkable in size, shape, and position. The diaphragmatic surfaces of the lungs are regular, and the costophrenic angles are clear. The pulmonary parrish are clear. The imaged osseous structures are intact. IMPRESSION: There is no acute cardiopulmonary disease. Electronically Signed by Aren Mascorro DO 10/03/2019 10:38 A
[2019-10-03] MEDS: KETOROLAC 30 MG/ML 1ML VIAL IV PRN ×2 (16:03→22:08)
[2019-10-03] MEDS: NICOTINE 7 MG/24 HR TRANSDERMAL TD SCH (20:15)
[2019-10-03] MEDS: hydrOXYzine 25 MG TAB PO PRN (20:16)
[2019-10-03] MEDS ORDERED: ENOXAPARIN 40MG/0.4ML SYRINGE (J1650 PER 10MG) SC SCH (21:00)
[2019-10-04] VITALS: BP 129/83
[2019-10-04 02:09] VITALS: BP 120/79
[2019-10-04 02:15] VITALS: BP 120/79
[2019-10-04] MEDS: LORazepam 2 MG TAB PO PRN (02:31)
[2019-10-04 04:18] VITALS: BP 136/86
[2019-10-04] MEDS ORDERED: POTASSIUM CHLORIDE 10 MEQ SR TABLET PO ONE ×2 (06:00→12:00)
[2019-10-04 06:06] LABS: HEMATOCRIT 35.5 % (42.0-52.0); MEAN CORPUSCULAR HEMOGLOBIN 30.4 pg (27.0-33.0); MEAN CORPUSCULAR HGB CONC 33.8 g/dl (32.0-36.5); MEAN CORPUSCULAR VOLUME 89.9 fl (80.0-96.0); PLATELET COUNT, AUTOMATED 189 10^3/uL (150-450); RED BLOOD COUNT 3.95 10^6/uL (4.30-6.10); WHITE BLOOD COUNT 6.3 10^3/uL (4.0-10.0)
[2019-10-04] MEDS: NS 1,000 ML IV SCH (06:14)
[2019-10-04 06:24] LABS: BLOOD UREA NITROGEN 7 MG/DL (7-18); CARBON DIOXIDE LEVEL 30 MEQ/L (21-32); CHLORIDE LEVEL 104 MEQ/L (98-107); CREATININE FOR GFR 0.55 MG/DL (0.70-1.30); GLOMERULAR FILTRATION RATE > 60.0 (>60); GLUCOSE, FASTING 79 MG/DL (70-100); MAGNESIUM LEVEL 1.7 MG/DL (1.8-2.4); POTASSIUM SERUM 3.4 MEQ/L (3.5-5.1); SODIUM LEVEL 139 MEQ/L (136-145)
--- NOTE | 2019-10-04 08:33 | DS.PDOC ---
Discharge Summary General Date of Admission October 02, 2019 at 19:13 Date of Discharge 10/04/19 Discharge Summary PROCEDURES PERFORMED DURING STAY: None. ADMITTING DIAGNOSES: 1. Pancreatitis/Sirs/alcohol withdrawal. DISCHARGE DIAGNOSES: 1. Pancreatitis/Sirs/alcohol withdrawal, left AMA. COMPLICATIONS/CHIEF COMPLAINT: Pancreatitis,Sirs. HISTORY OF PRESENT ILLNESS/HOSPITAL COURSE: Pt is a 29-yoM with a PMH of ETOH induced-pancreatitis, nephrolithiasis s/p stent, and hx of polysubstance abuse (on suboxone) is admitted for management of acute pancreatitis & alcohol withdrawal. During patient's hospital, he was placed under CIWA protocol, home Suboxone continued, pain controlled. He did report right flank/chest pain, ultrasound abdomen reveals hepatic steatosis, chest x-ray was negative for acute processes. Patient left AMA on 10/04/2019. DISCHARGE MEDICATIONS: Please see below. ALLERGIES: Please see below. PHYSICAL EXAMINATION ON DISCHARGE: VITAL SIGNS: Please see below. Not performed, patient left AMA prior to my evaluation LABORATORY DATA: Please see below. Pt left AMA Vital Signs/I&Os Vital Signs Date Time Temp Pulse Resp B/P (MAP) Pulse Ox O2 Delivery O2 Flow Rate FiO2 10/04/19 04:18 99.2 69 19 136/86 (103) 95 Room Air I&O- Last 24 Hours up to 6 AM 10/04/19 06:00 Intake Total 2700 ml Output Total 2850 ml Balance -150 ml Laboratory Data Labs 24H Laboratory Tests 2 10/04/19 05:52: Nucleated Red Blood Cells % (auto) 0.0, Anion Gap 5L, Glomerular Filtration Rate > 60.0, Calcium Level 8.0L, Magnesium Level 1.7L CBC/BMP Laboratory Tests 10/04/19 05:52 Microbiology Microbiology 10/02/19 Blood Culture - Preliminary, Resulted No growth after 24 hours . All specim... Discharge Medications Scheduled Buprenorphine HCl/Naloxone HCl (Suboxone 8 mg-2 mg Sl Film) 1 Each Film, 1 STRIP SL DAILY, (Reported) Sertraline HCl (Sertraline HCl) 100 Mg Tablet, 150 MG PO DAILY, (Reported) Scheduled PRN Hydroxyzine HCl (Hydroxyzine HCl) 25 Mg Tablet, 100 MG PO QHS PRN for SLEEP, (Reported) Allergies Coded Allergies: No Known Drug Allergies (Verified Allergy, Unknown, 07/28/19) ARMIN DUMONT MD October 04, 2019 08:32
== END 2019-10-04 06:58 | disposition left against medical advice (07) | DRG 282 ==
LOC: M ED 16:09 → M ED INP 19:13 → ENRESERV 20:04 → M PCU 20:50
PROVIDERS: ADMIT Internal Medicine; ATTEND Family Medicine
DX: K85.20 Alcohol induced acute pancreatitis without necrosis or infection (principal); R65.10 Systemic inflammatory response syndrome (SIRS) of non-infectious origin without acute organ dysfunction; E46 Unspecified protein-calorie malnutrition; F33.9 Major depressive disorder, recurrent, unspecified; F17.210 Nicotine dependence, cigarettes, uncomplicated; F10.239 Alcohol dependence with withdrawal, unspecified; Z87.442 Personal history of urinary calculi; Z68.1 Body mass index [BMI] 19.9 or less, adult; Z79.899 Other long term (current) drug therapy; Q87.40 Marfan syndrome, unspecified

== ENCOUNTER 2019-11-22 12:46 | Inpatient (IN) | payer OTHER ==
[~2019-11-22] VITALS: Ht 170.2 cm; Wt 54.8 kg
[2019-11-22] MEDS ORDERED: NS 500 ML IV ONE ×2 (13:30→15:00)
[2019-11-22] MEDS ORDERED: ONDANSETRON 4MG/2ML VIAL IV ONE (13:30)
[2019-11-22] MEDS ORDERED: LORazepam 2 MG/ML VIAL IV STA (13:30)
[2019-11-22] MEDS ORDERED: LORazepam 2 MG/ML VIAL As Ordered ONE (13:38)
[2019-11-22 13:48] LABS: BASO # 0.1 10^3/uL (0.0-0.2); BASO % 0.9 % (0.0-1.0); EOS % 0.5 % (0.0-3.0); HEMATOCRIT 47.1 % (42.0-52.0); LYMPH # 2.4 10^3/uL (1.5-5.0); LYMPH % 37.5 % (24.0-44.0); MEAN CORPUSCULAR HEMOGLOBIN 30.5 pg (27.0-33.0); MEAN CORPUSCULAR VOLUME 89.7 fl (80.0-96.0); MONO # 1.1 10^3/uL (0.0-0.8); MONO % 16.1 % (0.0-5.0); NEUTROPHILS # 2.9 10^3/uL (1.5-8.5); NEUTROPHILS % 43.9 % (36.0-66.0); PLATELET COUNT, AUTOMATED 374 10^3/uL (150-450); RED BLOOD COUNT 5.25 10^6/uL (4.30-6.10); WHITE BLOOD COUNT 6.5 10^3/uL (4.0-10.0)
[2019-11-22 14:33] LABS: ALBUMIN 3.8 GM/DL (3.2-5.2); BILIRUBIN,DIRECT 0.3 MG/DL (0.0-0.2); BILIRUBIN,TOTAL 0.4 MG/DL (0.2-1.0); ETHYL ALCOHOL (ETHANOL) 0.345 % (0.000-0.010); TOTAL PROTEIN 7.9 GM/DL (6.4-8.2)
[2019-11-22] MEDS ORDERED: ISOVUE-370 76% 100ML VIAL As Ordered ONE (14:57)
--- NOTE | 2019-11-22 16:08 | REP ---
CT ABDOMEN/PELVIS WITH IV AND WITHOUT ORAL CONTRAST: HISTORY: Right lower quadrant pain. Comparison study, September 16, 2019. CT CONTRAST DOSE: 100 mL of intravenous Isovue [address] FINDINGS: Preliminary digital book repairer radiograph is unremarkable. The lung bases are clear on axial CT images. Incidental note is made of healing rib fractures involving the right posterior 9th, 10th, and 11th ribs as well as right transverse process healing fractures at L1, L2, and L3. No bony destructive lesion is seen. Lumbar vertebral body heights are preserved. Alignment is normal. The liver and the spleen are normal in size homogeneous in texture. Mild diffuse fatty infiltration of the liver is again seen. No abnormalities noted in the pancreas or the gallbladder. Normal adrenal glands are seen. Right kidney is unremarkable. The kidneys enhance symmetrically. There is intrarenal nephrolithiasis with several calculi in the upper and lower pole of the left kidney. No hydronephrosis is seen. The largest calculus in the upper pole collecting system on the left measures 9 mm. No ureteral stone or bladder stone is seen. A normal appendix is seen in the right lower quadrant. No free fluid is seen. Prostate, seminal vesicles, and urinary bladder are unremarkable. No abdominal wall defect is seen. IMPRESSION: Intrarenal nephrolithiasis left kidney. No hydronephrosis or ureteral stones seen. Normal appendix noted. Healing right posterior rib fractures and right transverse process lumbar spine fractures. Rib numbers 9, 10, and 11 and transverse process fractures at L1 through L3. Electronically Signed by Dionte Campbell MD 11/22/2019 05:07 P
[2019-11-22 16:27] LABS: AMPHETAMINES LEVEL URINE NEGATIVE (NEGATIVE); BARBITURATES URINE NEGATIVE (NEGATIVE); BENZODIAZEPINES URINE NEGATIVE (NEGATIVE); CANNABINOIDS URINE NEGATIVE (NEGATIVE); COCAINE METABOLITE URINE NEGATIVE (NEGATIVE); METHADONE URINE NEGATIVE (NEGATIVE); OPIATES URINE NEGATIVE (NEGATIVE); PHENCYCLIDINE URINE NEGATIVE (NEGATIVE)
[2019-11-22] MEDS ORDERED: NS 1,000 ML IV ONE (16:30)
--- NOTE | 2019-11-22 17:05 | REPVR ---
PROCEDURE INFORMATION: Exam: CT Head Without Contrast Exam date and time: 11/22/2019 4:38 PM Age: 29 years old Clinical indication: Injury or trauma; Fall; Initial encounter; Blunt trauma (contusions or hematomas) TECHNIQUE: Imaging protocol: Computed tomography of the head without contrast. Radiation optimization: All CT scans at this facility use at least one of these dose optimization techniques: automated exposure control; mA and/or kV adjustment per patient size (includes targeted exams where dose is matched to clinical indication); or iterative reconstruction. COMPARISON: No relevant prior studies available. FINDINGS: Brain: There is a subcentimeter hyperdense focus within the anterior aspect of the left middle cranial fossa. This likely represents a vessel with residual enhancement from recent intravenous contrast administration. Hemorrhage is considered less likely. Artifact limits evaluation of the meka. The white-mccallum differentiation is preserved demonstrating no acute territorial type infarct. No acute intracranial hemorrhage is visualized on the remainder of this study. No intracranial mass effect. There is no midline shift. Ventricles: No ventriculomegaly. Bones/joints: The calvarium demonstrates no evidence for a depressed fracture. Sinuses: Visualized sinuses are unremarkable. No fluid levels. Mastoid air cells: No mastoid effusion. Soft tissues: Unremarkable. IMPRESSION: 1. There is a subcentimeter hyperdense focus within the anterior aspect of the left middle cranial fossa. This likely represents a vessel with residual enhancement from recent intravenous contrast administration. Hemorrhage is considered less likely. This can be confirmed with a follow-up head CT in 12-24 hours. 2. No acute intracranial abnormality on the remainder of this study. Electronically signed by: Omari Post On 11/22/2019 17:05:28 PM
--- NOTE | 2019-11-22 17:11 | REPVR ---
PROCEDURE INFORMATION: Exam: CT Cervical Spine Without Contrast Exam date and time: 11/22/2019 4:38 PM Age: 29 years old Clinical indication: Injury or trauma; Fall; Initial encounter; Blunt trauma TECHNIQUE: Imaging protocol: Computed tomography images of the cervical spine without contrast. Radiation optimization: All CT scans at this facility use at least one of these dose optimization techniques: automated exposure control; mA and/or kV adjustment per patient size (includes targeted exams where dose is matched to clinical indication); or iterative reconstruction. COMPARISON: No relevant prior studies available. FINDINGS: Vertebrae: No acute cervical spine fracture or subluxation. The facet alignment is preserved bilaterally. The occipital condyles and C1-C2 articulations appear intact. Discs/Spinal canal/Neural foramina: No signficant spinal stenosis. Artifact limits evaluation of the mid to lower cervical spinal canal. Soft tissues: No significant prevertebral soft tissue swelling. Mastoid air cells: Effusions visualized within the right mastoid air cells. Nasopharynx: Nasal bone fracture(s) visualized. Lungs: No pneumothorax, as visualized. Mild biapical parenchymal scarring. IMPRESSION: 1. No acute cervical spine fracture or subluxation. 2. Nasal bone fracture(s) visualized. If the patient has facial trauma, a facial CT is recommended. 3. Effusions visualized within the right mastoid air cells. Electronically signed by: Omari Post On 11/22/2019 17:11:23 PM
[2019-11-22 17:27] LABS: GLUCOSE, URINE (UA) MANUAL NEGATIVE (NEGATIVE); KETONE, URINE MANUAL NEGATIVE (NEGATIVE); UROBILINOGEN, URINE MANUAL NORMAL (NORMAL)
[2019-11-22 17:28] LABS: BILIRUBIN, URINE MANUAL NEGATIVE (NEGATIVE)
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
[2019-11-22] MEDS: THIAMINE 100 MG TAB PO SCH (18:54)
[2019-11-22] MEDS: LORazepam 2 MG TAB PO PRN (18:54)
[2019-11-22] MEDS ORDERED: MULTIVITAMIN -ADULT INJECTION 10 ML, THIAMINE INJection 100 MG, FOLIC ACID 1 MG in NS 1... IV ONE (19:00)
[2019-11-22] MEDS: chlordiazePOXIDE 25 MG CAP PO SCH (21:19)
[2019-11-22 21:50] VITALS: BP 120/78
[2019-11-22 22:00] VITALS: BP 120/78
[2019-11-23] VITALS (11 sets, daily range): BP systolic 122–182; BP diastolic 73–98
[2019-11-23] MEDS: HEPARIN SOD (PORCINE) 5000UNITS/ML VIAL (J1644 PER 1000UNITS) SC SCH ×4 (00:07→21:11)
[2019-11-23] MEDS: LORazepam 2 MG TAB PO PRN ×5 (03:31→18:06)
[2019-11-23 05:52] LABS: HEMATOCRIT 37.2 % (42.0-52.0); MEAN CORPUSCULAR HEMOGLOBIN 31.2 pg (27.0-33.0); MEAN CORPUSCULAR HGB CONC 34.4 g/dl (32.0-36.5); MEAN CORPUSCULAR VOLUME 90.7 fl (80.0-96.0); PLATELET COUNT, AUTOMATED 291 10^3/uL (150-450); WHITE BLOOD COUNT 7.3 10^3/uL (4.0-10.0)
[2019-11-23 05:55] LABS: HEMOGLOBIN 12.8 g/dl (13.5-17.5)
[2019-11-23 06:22] LABS: ALBUMIN 3.2 GM/DL (3.2-5.2); ALT/SGPT 48 U/L (12-78); BILIRUBIN,TOTAL 0.7 MG/DL (0.2-1.0); BLOOD UREA NITROGEN 9 MG/DL (7-18); CALCIUM LEVEL 7.7 MG/DL (8.5-10.1); CARBON DIOXIDE LEVEL 26 MEQ/L (21-32); CHLORIDE LEVEL 103 MEQ/L (98-107); CREATININE FOR GFR 0.58 MG/DL (0.70-1.30); GLOMERULAR FILTRATION RATE > 60.0 (>60); GLUCOSE, FASTING 80 MG/DL (70-100); POTASSIUM SERUM 3.1 MEQ/L (3.5-5.1); SODIUM LEVEL 136 MEQ/L (136-145); TOTAL PROTEIN 6.3 GM/DL (6.4-8.2)
[2019-11-23] MEDS: MULTIVITAMINS/MINERALS THERAP 1 TAB PO SCH (08:39)
[2019-11-23] MEDS: FOLIC ACID 1 MG TAB PO SCH (08:39)
[2019-11-23] MEDS: chlordiazePOXIDE 25 MG CAP PO SCH ×2 (08:39→21:11)
[2019-11-23] MEDS: THIAMINE 100 MG TAB PO SCH ×2 (08:39→21:11)
[2019-11-23] MEDS: SERTRALINE HCL 50 MG TAB PO SCH (08:39)
--- NOTE | 2019-11-23 08:56 | REP ---
Clinical: Trauma. Fall. Technique: Axial images from the skull base to the vertex with coronal re-formations. . Comparison: 11/22/2019 . Findings: The ventricles, sulci, and cisterns are normal in position and appearance. Rivera-white differentiation is maintained. No acute intracranial hemorrhage, mass/mass effect, pathology or trauma/injury. No evidence for acute infarction. No extra-axial fluid collection. Calvarium is intact. Paranasal sinuses are clear. Small amount of fluid in the right mastoid air cells unchanged. Impression: Essentially normal noncontrast head CT. No evidence for acute intracranial pathology or trauma/injury. Electronically Signed by Sly Mensah MD 11/23/2019 08:48 A
[2019-11-23 09:50] LABS: HEMOGLOBIN 13.1 g/dl (13.5-17.5); MEAN CORPUSCULAR HGB CONC 34.5 g/dl (32.0-36.5); MEAN CORPUSCULAR VOLUME 89.8 fl (80.0-96.0); PLATELET COUNT, AUTOMATED 300 10^3/uL (150-450); RED BLOOD COUNT 4.23 10^6/uL (4.30-6.10); WHITE BLOOD COUNT 8.9 10^3/uL (4.0-10.0)
[2019-11-23] MEDS: MAGNESIUM OXIDE 400 MG TAB (MAG-OX) PO SCH (09:55)
[2019-11-23] MEDS ORDERED: POTASSIUM CHLORIDE 10 MEQ SR TABLET PO ONE (10:00)
[2019-11-23] MEDS: BUPRENORPHINE/NALOXONE 2-0.5MG SUBLINGUAL TABLET(SUBOXONE) SL SCH (11:06)
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
[2019-11-24 03:38] VITALS: BP 134/96
[2019-11-24] MEDS: LORazepam 2 MG TAB PO PRN ×2 (03:41→11:59)
[2019-11-24] MEDS: HEPARIN SOD (PORCINE) 5000UNITS/ML VIAL (J1644 PER 1000UNITS) SC SCH ×2 (05:42→15:01)
[2019-11-24 06:00] VITALS: BP 139/79
[2019-11-24 07:55] VITALS: BP 141/99
[2019-11-24] MEDS: FOLIC ACID 1 MG TAB PO SCH (07:57)
[2019-11-24] MEDS: chlordiazePOXIDE 25 MG CAP PO SCH (07:57)
[2019-11-24] MEDS: MAGNESIUM OXIDE 400 MG TAB (MAG-OX) PO SCH (07:57)
[2019-11-24] MEDS: MULTIVITAMINS/MINERALS THERAP 1 TAB PO SCH (07:57)
[2019-11-24] MEDS: SERTRALINE HCL 50 MG TAB PO SCH (07:58)
[2019-11-24] MEDS: BUPRENORPHINE/NALOXONE 2-0.5MG SUBLINGUAL TABLET(SUBOXONE) SL SCH (07:58)
[2019-11-24] MEDS: THIAMINE 100 MG TAB PO SCH (07:58)
[2019-11-24 08:51] LABS: HEMATOCRIT 41.5 % (42.0-52.0); HEMOGLOBIN 14.2 g/dl (13.5-17.5); MEAN CORPUSCULAR HEMOGLOBIN 30.9 pg (27.0-33.0); MEAN CORPUSCULAR HGB CONC 34.2 g/dl (32.0-36.5); MEAN CORPUSCULAR VOLUME 90.4 fl (80.0-96.0); PLATELET COUNT, AUTOMATED 330 10^3/uL (150-450); RED BLOOD COUNT 4.59 10^6/uL (4.30-6.10); WHITE BLOOD COUNT 8.8 10^3/uL (4.0-10.0)
[2019-11-24] MEDS ORDERED: NICOTINE 21MG/24HR 1 EA TRANSDERMAL TD SCH (09:00)
[2019-11-24 10:13] LABS: ALBUMIN 3.8 GM/DL (3.2-5.2); ALT/SGPT 55 U/L (12-78); BILIRUBIN,TOTAL 0.5 MG/DL (0.2-1.0); BLOOD UREA NITROGEN 12 MG/DL (7-18); CARBON DIOXIDE LEVEL 25 MEQ/L (21-32); CHLORIDE LEVEL 102 MEQ/L (98-107); CREATININE FOR GFR 0.67 MG/DL (0.70-1.30); GLOMERULAR FILTRATION RATE > 60.0 (>60); GLUCOSE, FASTING 107 MG/DL (70-100); SODIUM LEVEL 136 MEQ/L (136-145); TOTAL PROTEIN 7.4 GM/DL (6.4-8.2)
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
[2019-11-24 11:56] VITALS: BP 142/99
[2019-11-24 14:00] VITALS: BP 135/95
[2019-11-24 16:16] VITALS: BP 138/104
--- NOTE | 2019-11-24 18:36 | DS.PDOC ---
Discharge Summary General Date of Admission Nov 22, 2019 at 18:04 Date of Discharge 11/24/2019 Attending Physician: ERNESTINA PEREIRA MD Discharge Summary PROCEDURES PERFORMED DURING STAY: None. ADMITTING DIAGNOSES: 1. Acute pancreatitis. 2. Multiple rib fractures in various stages of healing, L1L3 transverse process fractures. 3. Alcohol withdrawal. 4. Tobacco abuse DISCHARGE DIAGNOSES: 1. Acute pancreatitis, resolved 2. Multiple rib fractures in various stages of healing, L1L3 transverse process fractures. 3. Alcohol withdrawal. 4. Tobacco abuse 5. Polysubstance abuse COMPLICATIONS/CHIEF COMPLAINT: Alcohol Abuse, Rib Fractures. HISTORY OF PRESENT ILLNESS: 29-year-old male who presented to the hospital because of epigastric and right sided abdominal pain. He states that he drinks 1 L of vodka per day and has been drinking heavily the last 12 years. He states that he has been trying to cut down on alcohol and his last drink was the morning of presentation. The patient states that he has been shaky and his pain is around 6 out of 10. The patient got a CT scan of abdomen and pelvis which showed fractures in various stages of healing on the right posterior ribs 9, 10 and 11 along with L1-L3 transverse process fractures in multiple stages of healing. The patient also had mildly elevated lipase. The patient got a CT scan of the head as well as CT scan of the cervical spine. The patient currently is being admitted for alcohol withdrawals, abdominal pain possibly related to acute pancreatitis, rib fractures, likely related to trauma from frequent falls because of alcoholism. The patient states that he has no suicidal ideations or any ideations of hurting anybody else. HOSPITAL COURSE: Patient was admitted to the hospital and started on IV fluids with banana bag for alcohol abuse. For his withdrawal. He was started on Librium 25 mg twice a day and see what protocol with when necessary Ativan. He was placed on fall precautions due to the history of frequent falls and multiple fractures in various stages of healing. During his admission, his symptoms i mproved and he was able to tolerate a regular diet. He was switched on oral thiamine and folic acid supplements. He did have a small hyperdense area in the left middle cranial fossa seen on head CT in the ED, and a follow-up head CT was negative. On 11/24/2019. The patient left AMA citing the need to take care of a housing situation. He did sign the AMA form but left before a provider was able to speak to him. Nursing staff was able to review and sign the AMA form with the patient prior to his departure. DISCHARGE MEDICATIONS: Please see below. ALLERGIES: Please see below. PHYSICAL EXAMINATION ON DISCHARGE: VITAL SIGNS: Please see below. Please refer to last progress note, patient left prior to being evaluated by this provider. LABORATORY DATA: Please see below. IMAGING: - CT Abdomen/pelvis: Intrarenal nephrolithiasis left kidney. No hydronephrosis or ureteral stones seen. Normal appendix noted. Healing right posterior rib fractures and right transverse process lumbar spine fractures. Rib numbers 9, 10, and 11 and transverse process fractures at L1 through L3. - Head CT: There is a subcentimeter hyperdense focus within the anterior aspect of the left middle cranial fossa. This likely represents a vessel with residual enhancement from recent intravenous contrast administration. Hemorrhage is considered less likely. This can be confirmed with a follow up head CT in 12-24 hours. No acute intracranial abnormality on the remainder of this study. - C spine CT: No acute cervical spine fracture or subluxation. Nasal bone fracture(s) visualized. If the patient has facial trauma, a facial CT is recommended. Effusions visualized within the right mastoid air cells. - Head CT: Essentially normal noncontrast head CT. No evidence for acute intracranial pathology or trauma/injury. PROGNOSIS: Poor ACTIVITY: As tolerated. DIET: As tolerated. DISPOSITION: 07 Against Medical Advice. ITEMS TO FOLLOWUP ON ON OUTPATIENT: 1. Polysubstance abuse DISCHARGE CONDITION: Not stable. TIME SPENT ON DISCHARGE: Greater than 35 minutes. Vital Signs/I&Os Vital Signs Date Time Temp Pulse Resp B/P (MAP) Pulse Ox O2 Delivery O2 Flow Rate FiO2 11/24/19 16:16 122 138/104 11/24/19 14:00 97.0 17 98 Room Air I&O- Last 24 Hours up to 6 AM 11/24/19 06:00 Intake Total 2520 ml Output Total 450 ml Balance 2070 ml Laboratory Data Labs 24H Laboratory Tests 2 11/24/19 08:34: Nucleated Red Blood Cells % (auto) 0.0, Anion Gap 9, Glomerular Filtration Rate > 60.0, Calcium Level 9.0#, Total Bilirubin 0.5, Aspartate Amino Transf (AST/SGOT) 76H, Alanine Aminotransferase (ALT/SGPT) 55, Alkaline Phosphatase 128H, Total Protein 7.4, Albumin 3.8, Albumin/Globulin Ratio 1.1 CBC/BMP Laboratory Tests 11/24/19 08:34 Discharge Medications Scheduled Buprenorphine HCl/Naloxone HCl (Suboxone 8 mg-2 mg Sl Film) 1 Each Film, 1 STRIP SL DAILY, (Reported) Sertraline HCl (Sertraline HCl) 100 Mg Tablet, 150 MG PO DAILY, (Reported) Scheduled PRN Hydroxyzine HCl (Hydroxyzine HCl) 25 Mg Tablet, 50 MG PO QHS PRN for SLEEP, (Reported) sometimes takes 75mgs prn Allergies Coded Allergies: No Known Drug Allergies (Verified Allergy, Unknown, 07/28/19) GME ATTESTATION GME ATTESTATION My faculty preceptor for this patient encounter was physically present during the encounter and was fully available. All aspects of the patient interview, examination, medical decision making process, and medical care plan development were reviewed and approved by the faculty preceptor. The faculty preceptor is aware and concurs with the plan as stated in the body of this note and will attest to such by his/her cosignature. ATTENDING NOTE Patient was seen and examined by me. Agree with the above assessment and plan CHRISTINE RODRIGUEZ D.O. Nov 24, 2019 18:36 ERNESTINA PEREIRA MD Nov 25, 2019 14:24
== END 2019-11-24 18:12 | disposition left against medical advice (07) | DRG 282 ==
LOC: M ED 12:46 → M ED INP 18:04 → M MSPAV 21:50
PROVIDERS: ADMIT Internal Medicine; ATTEND Internal Medicine
DX: K85.90 Acute pancreatitis without necrosis or infection, unspecified (principal); S32.019A Unspecified fracture of first lumbar vertebra, initial encounter for closed fracture; S32.029A Unspecified fracture of second lumbar vertebra, initial encounter for closed fracture; S22.41XA Multiple fractures of ribs, right side, initial encounter for closed fracture; S32.039A Unspecified fracture of third lumbar vertebra, initial encounter for closed fracture; F17.200 Nicotine dependence, unspecified, uncomplicated; F10.239 Alcohol dependence with withdrawal, unspecified; R29.6 Repeated falls; N20.0 Calculus of kidney; W18.30XA Fall on same level, unspecified, initial encounter; Y92.9 Unspecified place or not applicable

== ENCOUNTER 2020-03-31 11:54 | Observation (INO) | payer OTHER ==
[~2020-03-31] VITALS: Ht 170.2 cm; Wt 52.7 kg
[2020-03-31] MEDS ORDERED: LORazepam 2 MG/ML VIAL IV STA ×2 (12:19→17:59)
[2020-03-31] MEDS ORDERED: NS 1,000 ML IV ONE ×2 (12:30→13:45)
[2020-03-31] MEDS ORDERED: THIAMINE 200MG/2ML VIAL (J3411 PER 100MG) IM ONE (12:30)
[2020-03-31 12:50] LABS: VENOUS BASE EXCESS 1.7 (-2.0-2.0); VENOUS HCO3 26.1 MEQ/L (23.0-27.0); VENOUS O2 SATURATION 89.9 % (60.0-80.0); VENOUS PARTIAL PRESSURE O2 61.7 mmHg (30.0-50.0); VENOUS PH 7.432 UNITS (7.330-7.430); VENOUS STANDARD HCO3 25.8 MEQ/L; VENOUS TOTAL CO2 27.3 MEQ/L (24.0-28.0)
[2020-03-31 12:56] LABS: BASO # 0.1 10^3/uL (0.0-0.2); BASO % 1.5 % (0.0-1.0); EOS % 0.2 % (0.0-3.0); HEMATOCRIT 37.5 % (42.0-52.0); HEMOGLOBIN 12.3 g/dl (13.5-17.5); LYMPH # 0.9 10^3/uL (1.5-5.0); LYMPH % 20.1 % (24.0-44.0); MEAN CORPUSCULAR HEMOGLOBIN 31.6 pg (27.0-33.0); MEAN CORPUSCULAR HGB CONC 32.8 g/dl (32.0-36.5); MEAN CORPUSCULAR VOLUME 96.4 fl (80.0-96.0); MONO # 0.4 10^3/uL (0.0-0.8); MONO % 8.3 % (0.0-5.0); NEUTROPHILS # 3.2 10^3/uL (1.5-8.5); NEUTROPHILS % 69.5 % (36.0-66.0); PLATELET COUNT, AUTOMATED 189 10^3/uL (150-450); RED BLOOD COUNT 3.89 10^6/uL (4.30-6.10); WHITE BLOOD COUNT 4.6 10^3/uL (4.0-10.0)
[2020-03-31] MEDS ORDERED: POTASSIUM CHLORIDE 10 MEQ SR TABLET PO ONE (13:15)
[2020-03-31 13:29] LABS: OSMOLALITY SERUM 380 MOSM/KG (275-295)
[2020-03-31 13:30] LABS: ACETAMINOPHEN LEVEL < 2.0 UG/ML (10.0-30.0); ALBUMIN 3.6 GM/DL (3.2-5.2); ALT/SGPT 129 U/L (12-78); BILIRUBIN,DIRECT 0.2 MG/DL (0.0-0.2); BILIRUBIN,TOTAL 0.5 MG/DL (0.2-1.0); CPK CREATINE PHOSPHOKINASE 356 U/L (39-308); ETHYL ALCOHOL (ETHANOL) 0.337 % (0.000-0.010); LIPASE 374 U/L (73-393); MAGNESIUM LEVEL 2.1 MG/DL (1.8-2.4); SALICYLATE LEVEL < 1.7 MG/DL (5.0-30.0)
--- NOTE | 2020-03-31 14:05 | ECGEPIP ---
[facility] - ED Test Date: 2020-03-31 Pat Name: YADIRA SCHAEFER Department: Room: - Gender: Male Ring Packer: michael : 1990 Requested By: Alexandra Fritz Order Number: [id number] Reading MD: Alexandra Fritz Measurements Intervals Bryson Rate: 101 P: 39 WA: 115 QRS: 42 QRSD: 89 T: 37 QT: 370 QTc: 481 Interpretive Statements SINUS TACHYCARDIA WITH SHORT WA INTERVAL PROLONGED QTC MODERATE T-WAVE ABNORMALITY COMPARED 09/16/19 Electronically Signed on 03-31-2020 14:04:57 EST by Alexandra Fritz
--- NOTE | 2020-03-31 14:41 | REP ---
INDICATION: AUDITORY HALLUCINATIONS. COMPARISON: November 23, 2019.. TECHNIQUE: Helical scanning is acquired. 5 mm axial images were reformatted. Coronal MPR images were generated. FINDINGS: Bone window settings demonstrate an intact bony calvarium. There is no evidence of skull fracture or incidental bony calvarial lesion. The visualized paranasal sinuses appear clear. No intraorbital abnormality is seen. On soft tissue window setting images; the lateral, third, and fourth ventricles are normal in size and position. Rivera-white differentiation pattern is normal above and below the tentorium. There are is no evidence of intracranial hemorrhage. No mass, edema, infarction, or midline shift is seen. No extra-axial fluid collection is appreciated. IMPRESSION: Negative noncontrast head CT. <Electronically signed by Thad Campbell > 03/31/20 [id number]
[2020-03-31] MEDS ORDERED: METOCLOPRAMIDE INJ 10MG/2ML VIAL (J2765 PER 1) IV ONE (17:00)
[2020-03-31] MEDS ORDERED: ISOVUE-370 76% 100ML VIAL As Ordered ONE (17:04)
[2020-03-31 18:19] LABS: AMPHETAMINES LEVEL URINE NEGATIVE (NEGATIVE); BARBITURATES URINE NEGATIVE (NEGATIVE); BENZODIAZEPINES URINE NEGATIVE (NEGATIVE); CANNABINOIDS URINE NEGATIVE (NEGATIVE); COCAINE METABOLITE URINE NEGATIVE (NEGATIVE); METHADONE URINE NEGATIVE (NEGATIVE); OPIATES URINE NEGATIVE (NEGATIVE); PHENCYCLIDINE URINE NEGATIVE (NEGATIVE)
[2020-03-31] MEDS ORDERED: KCL 10MEQ/100ML SWI (KRUN) 10 MEQ in IV 1 EA IV ONE (18:45)
--- NOTE | 2020-03-31 19:06 | REPVR ---
PROCEDURE INFORMATION: Exam: CT Abdomen And Pelvis With Contrast Exam date and time: 03/31/2020 6:12 PM Age: 29 years old Clinical indication: Abdominal pain; Generalized; Additional info: Abd pain TECHNIQUE: Imaging protocol: Computed tomography of the abdomen and pelvis with intravenous contrast. Radiation optimization: All CT scans at this facility use at least one of these dose optimization techniques: automated exposure control; mA and/or kV adjustment per patient size (includes targeted exams where dose is matched to clinical indication); or iterative reconstruction. Contrast material: ISOVUE 370; Contrast volume: 100 ml; Contrast route: INTRAVENOUS (IV); COMPARISON: CT ABD/PEL W/IV CONTRAST ONLY 11/22/2019 2:57 PM FINDINGS: Lungs: Clear appearing lung bases. Heart: The heart is normal in size and there is no pericardial effusion. Liver: There is moderate fatty infiltration of the liver. Gallbladder and bile ducts: Gallbladder is fluid filled. Normal common bile duct. Pancreas: Normal pancreas. Spleen: Normal spleen. Adrenal glands: Normal adrenal glands. Kidneys and ureters: There is enhancement of both kidneys. There are 11 calcified stones left kidney ranging in size from 2 mm to 7 mm. There is no evidence of hydronephrosis. Stomach and bowel: Unremarkable. No obstruction. No mucosal thickening. Appendix: No evidence of appendicitis. Intraperitoneal space: There is no evidence of pneumoperitoneum and no evidence of free fluid in the abdomen or the pelvis. Vasculature: There is opacification there is opacification of the aorta which appears normal in size. There is opacification of the SMV and the SMA. Lymph nodes: There is no evidence of lymphadenopathy. Urinary bladder: The urinary bladder is empty. Reproductive: Normal size prostate. Bones/joints: There is no evidence of bony abnormality. Soft tissues: Unremarkable. IMPRESSION: 1. There are 11 calcified renal stones stones throughout the left kidney but no evidence of obstruction at this time. The stones range in size from 2 mm to 7mm. 2. Fatty infiltration of the liver. Electronically signed by: Britton Chavez On 03/31/2020 19:06:36 PM
[2020-03-31] MEDS ORDERED: MOM 30ML SUSPENSION UDC PO PRN (20:30)
[2020-03-31 21:21] LABS: HEPATITIS B SURFACE ANTIGEN NEGATIVE (NEGATIVE)
--- NOTE | 2020-03-31 21:37 | HPEPDOC ---
[facility] Medical History & Physical Date of Admission Mar 31, 2020 Date of Service: Mar 31, 2020 History and Physical CHIEF COMPLAINT: Epigastric pain HISTORY OF PRESENT ILLNESS: 29-year-old male past medical history of depression, alcohol abuse, opiate dependence presents to the emergency department for epigastric pain and intractable vomiting. Patient was found to be intoxicated with an elevated blood alcohol level. When I saw the patient in the ED he was still intoxicated but was able to answer some basic questions. Tells me he's been having a drinking binge that's more than usual over the past few days his last drink being immediately prior to coming this morning. Tells me his epigastric pain is associated with nausea and vomiting but denies any hematemesis. Tells me he's feeling a little better since his being here after getting some IV fluids and antiemetics. He is still unable to tolerate by mouth which she attempted earlier. Regarding his alcohol abuse tells me he drinks 1 L of vodka daily and has had withdrawals in the past. He gets the shakes when he stops drinking and has been admitted to the hospital this summer for alcohol withdrawal. He denies ever being intubated or admitted to the ICU for alcohol withdrawal. Does not feel he is going through withdrawals currently. Patient also has a history of opiate dependence and is in Suboxone program. Received 8 mg of Suboxone daily and took his last dose 2 days ago. Tells me he did not take it yesterday or today because he was too drunk to remember. On review of systems patient reports some dysuria but not currently and is unsure if he has penile discharge. In the ED head CT was done which was negative. CT of abdomen and pelvis did not reveal acute pathology. Has a fatty liver. He had a low potassium which was replaced. His lipase was negative. He was found to have transaminitis which was attributed to his alcohol abuse. PAST MEDICAL HISTORY: Depression Alcohol abuse Opiate dependence PAST SURGICAL HISTORY: Denies any previous surgeries SOCIAL HISTORY: Drinks alcohol daily 1 L vodka Smokes 2 packs of cigarettes daily Endorses history of heroin abuse last use was one year ago no other illicit drugs reported FAMILY HISTORY: Denies knowledge of any family history of medical illnesses ALLERGIES: Please see below. REVIEW OF SYSTEMS: Full 10 point review of systems completed and is negative other than as stated in HPI HOME MEDICATIONS: Please see below. PHYSICAL EXAMINATION: Constitutional: Intoxicated appearing but not in apparent distress ENT: Sclera are clear. Mucosa is moist. Respiratory: Lungs CTA bilaterally. No respiratory distress. No use of accessory muscles. Cardiovascular: RRR S1 and S2 are normal, no murmur Gastrointestinal: Abdomen is soft, non distended, non tender, BS present. Musculoskeletal: No edema. RUE 5/5, LUE 5/5, BLE 5/5 Neurologic: Has mild bilateral tremors in bilateral upper extremities no other focal neurological deficits Mental Status: A&O x3 Skin: Warm, dry LABORATORY DATA: See below. IMAGING: Imaging reviewed CT chart MICROBIOLOGY: Please see below. ASSESSMENT/PLAN 29-year-old male history of depression and alcohol abuse here due to intractable nausea and vomiting and epigastric abdominal pain after binge drinking heavily the past few days. Patient was brought in intoxicated and will be admitted for observation. # Alcohol intoxication: Currently intoxicated. IV fluids. Serial protocol monitor for withdrawal suspicion is high risk given history of withdrawals in the past. IV Ativan when necessary per protocol. MVN, folate, thiamine. Fall and seizure precautions. # Intractable nausea and vomiting: Much improved when seen in ED. QTC prolonged hold Zofran. Scheduled Reglan. IV fluids. Advance diet as tolerated. # Opiate dependence: Not withdrawing currently. Holding Suboxone for prolonged QTC. Manage symptomatically. # Transaminitis: CT abdomen reviewed. Fatty liver likely from alcohol. Trend CMP daily. FU hepatitis panel. # Dysuria: STI screen. Urinalysis. # Smoker: Counseled to quit smoking. Nicotine patch. # depression: Resume Zoloft # DVT prophylaxis: Lovenox A [facility] Hospitalist Vital Signs Vital Signs Date Time Temp Pulse Resp B/P (MAP) Pulse Ox O2 Delivery O2 Flow Rate FiO2 03/31/20 20:45 99 118/62 (80) 98 Room Air 03/31/20 19:00 18 03/31/20 11:56 97.3 Laboratory Data Labs 24H Laboratory Tests 2 03/31/20 12:44: Immature Granulocyte % (Auto) 0.4, Neutrophils (%) (Auto) 69.5H, Lymphocytes (%) (Auto) 20.1L, Monocytes (%) (Auto) 8.3H, Eosinophils (%) (Auto) 0.2, Basophils (%) (Auto) 1.5H, Neutrophils # (Auto) 3.2, Lymphocytes # (Auto) 0.9L, Monocytes # (Auto) 0.4, Eosinophils # (Auto) 0.0, Basophils # (Auto) 0.1, Nucleated Red Blood Cells % (auto) 0.0, Blood Gas Bicarbonate Standard 25.8, Venous Blood pH 7.432H, Venous Blood Partial Pressure CO2 40.0, Venous Blood Partial Pressure O2 61.7H, Venous Blood Total Carbon Dioxide 27.3, Venous Blood HCO3 26.1, Venous Blood Oxygen Saturation 89.9H, Venous Blood Base Excess 1.7, Osmolality 380H, Magnesium Level 2.1, Total Bilirubin 0.5, Direct Bilirubin 0.2, Aspartate Amino Transf (AST/SGOT) 633H, Alanine Aminotransferase (ALT/SGPT) 129H, Alkaline Phosphatase 299H, Total Creatine Kinase 356H, Total Protein 7.0, Albumin 3.6, Albumin/Globulin Ratio 1.1, Lipase 374, Thyroid Stimulating Hormone (TSH) 1.360, Salicylates Level < 1.7L, Urine Opiates Screen NEGATIVE, Urine Methadone Screen NEGATIVE, Acetaminophen Level < 2.0L, Urine Barbiturates Screen NEGATIVE, Urine Phencyclidine Screen NEGATIVE, Urine Amphetamines Screen NEGATIVE, Urine Benzodiazepines Screen NEGATIVE, Urine Cocaine Metabolite Screen NEGATIVE, Urine Cannabinoids Screen NEGATIVE, Ethyl Alcohol Level 0.337H, Syphilis Serology NONREACTIVE 03/31/20 12:51: POC Glucose (Misc Panel) 146H, POC Sodium (Misc Panel) 140, POC Potassium (Misc Panel) 3.0L, POC Chloride (Misc Panel) 95L, POC Total CO2 (Misc Panel) 27.0, POC Blood Urea Nitrogen (Misc Panel 11, POC Ionized Calcium (Misc Panel) 3.8L, POC Creatinine (Misc Panel) 1.0, POC Hematocrit (Misc Panel) 40.0 CBC/BMP Laboratory Tests 03/31/20 12:44 Microbiology Microbiology 03/31/20 Respiratory Virus Panel (PCR) ([facility]), Received Pending Home Medications Scheduled Buprenorphine HCl/Naloxone HCl (Suboxone 8 mg-2 mg Sl Film) 1 Each Film, 1 STRIP SL DAILY Sertraline HCl (Sertraline HCl) 100 Mg Tablet, 150 MG PO DAILY Allergies Coded Allergies: No Known Drug Allergies (Verified Allergy, Unknown, 07/28/19) A-FIB/CHADSVASC A-FIB History Current/History of A-Fib/PAF?: No YOUSEF,GILLIAN Alamo MD Mar 31, 2020 21:37
[2020-03-31 21:42] LABS: HEPATITIS B CORE ANTIBODY IGM NEGATIVE (NEGATIVE); HEPATITIS C VIRUS ABY INDEX 0.1 INDEX (<0.8)
[2020-03-31 21:45] LABS: HEPATITIS A ANTIBODY IGM NEGATIVE (NEGATIVE)
[2020-03-31 21:49] LABS: HIV 1&2 SCREEN CENTAUR NEGATIVE (NEGATIVE)
[2020-03-31] MEDS: NS 1,000 ML IV SCH (22:31)
[2020-03-31 22:33] VITALS: BP 120/78
[2020-03-31 22:40] VITALS: BP 120/78
[2020-03-31] MEDS: THIAMINE 100 MG TAB PO SCH (23:01)
[2020-03-31] MEDS: LORazepam 2 MG TAB PO PRN (23:02)
[2020-03-31] MEDS: METOCLOPRAMIDE INJ 10MG/2ML VIAL (J2765 PER 1) IV SCH (23:02)
[2020-03-31] MEDS: ACETAMINOPHEN TAB 650MG DOSE (2X325MG) PO PRN (23:03)
[2020-04-01] VITALS (15 sets, daily range): BP systolic 104–131; BP diastolic 68–85
[2020-04-01] MEDS ORDERED: INFLUENZA QUADRIVALENT PF VACCINE 0.5ML SYRINGE IM ONE ×2 (03:30→09:00)
[2020-04-01] MEDS: NS 1,000 ML IV SCH ×2 (05:00→08:51)
[2020-04-01] MEDS: LORazepam 2 MG TAB PO PRN ×3 (06:18→16:41)
[2020-04-01 07:07] LABS: HEMATOCRIT 32.8 % (42.0-52.0); HEMOGLOBIN 10.8 g/dl (13.5-17.5); MEAN CORPUSCULAR HEMOGLOBIN 32.2 pg (27.0-33.0); MEAN CORPUSCULAR HGB CONC 32.9 g/dl (32.0-36.5); MEAN CORPUSCULAR VOLUME 97.9 fl (80.0-96.0); PLATELET COUNT, AUTOMATED 146 10^3/uL (150-450); RED BLOOD COUNT 3.35 10^6/uL (4.30-6.10); WHITE BLOOD COUNT 9.6 10^3/uL (4.0-10.0)
[2020-04-01 07:28] LABS: ALT/SGPT 127 U/L (12-78); BILIRUBIN,TOTAL 1.2 MG/DL (0.2-1.0); BLOOD UREA NITROGEN 6 MG/DL (7-18); CALCIUM LEVEL 8.2 MG/DL (8.5-10.1); CARBON DIOXIDE LEVEL 25 MEQ/L (21-32); CHLORIDE LEVEL 103 MEQ/L (98-107); CREATININE FOR GFR 0.68 MG/DL (0.70-1.30); GLOMERULAR FILTRATION RATE > 60.0 (>60); GLUCOSE, FASTING 124 MG/DL (70-100); MAGNESIUM LEVEL 1.5 MG/DL (1.8-2.4); SODIUM LEVEL 140 MEQ/L (136-145); TOTAL PROTEIN 5.8 GM/DL (6.4-8.2)
[2020-04-01] MEDS: MAG SULF 1GM/100ML (MAG RUN) 1 GM in IV 1 EA IV SCH ×4 (08:48→12:18)
[2020-04-01] MEDS: THIAMINE 100 MG TAB PO SCH ×2 (08:49→20:42)
[2020-04-01] MEDS: SERTRALINE 100 MG TAB PO SCH (08:49)
[2020-04-01] MEDS: ACETAMINOPHEN TAB 650MG DOSE (2X325MG) PO PRN (08:49)
[2020-04-01] MEDS: FOLIC ACID 1 MG TAB PO SCH (08:49)
[2020-04-01] MEDS: METOCLOPRAMIDE INJ 10MG/2ML VIAL (J2765 PER 1) IV SCH ×3 (08:49→20:42)
[2020-04-01] MEDS: NICOTINE 21MG/24HR 1 EA TRANSDERMAL TD SCH (08:49)
[2020-04-01] MEDS: MULTIVITAMINS/MINERALS THERAP 1 TAB PO SCH (08:49)
[2020-04-01] MEDS: ENOXAPARIN 40MG/0.4ML SYRINGE (J1650 PER 10MG) SC SCH (08:51)
[2020-04-01] MEDS ORDERED: POTASSIUM CHLORIDE 10 MEQ SR TABLET PO ONE (09:00)
[2020-04-01 15:11] LABS: BLOOD UREA NITROGEN 3 MG/DL (7-18); CARBON DIOXIDE LEVEL 31 MEQ/L (21-32); CHLORIDE LEVEL 99 MEQ/L (98-107); CREATININE FOR GFR 0.48 MG/DL (0.70-1.30); GLOMERULAR FILTRATION RATE > 60.0 (>60); GLUCOSE, FASTING 101 MG/DL (70-100); SODIUM LEVEL 137 MEQ/L (136-145)
[2020-04-01 16:04] LABS: TROPONIN I < 0.02 NG/ML (< 0.10)
[2020-04-01] MEDS: KCL 10MEQ/100ML SWI (KRUN) 10 MEQ in IV 1 EA IV SCH ×4 (16:55→20:43)
--- NOTE | 2020-04-01 20:42 | IPNPDOC ---
Subjective Date Seen The patient was seen on 04/01/20. Subjective Chief Complaint/HPI Mr. Warren is a 29 year old male with depression, alcohol abuse, and opiate dependence here with epigastric pain and intractable vomiting. He was found intoxicated. When I saw him the morning, he reported diarrhea, nausea and an episode of vomiting this morning. Denies chest pain. He did not have an appetite for breakfast or lunch. Otherwise, during my examination, his tremors stopped. He started again afterwards. Nurse notice that sometimes he can stop his tremors. Objective Physical Examination General Exam: Positive: Alert, Cooperative, Mild Distress Eye Exam: Positive: EOMI; Negative: Sclera icteric ENT Exam: Positive: Atraumatic Neck Exam: Positive: Supple Chest Exam: Positive: Clear to auscultation; Negative: Wheezing Heart Exam: Positive: Tachycardic, Regular Rhythm Abdomen Exam: Positive: Tenderness; Negative: Soft (Gaurding) Extremity Exam: Negative: Edema Neuro Exam: Positive: Normal Speech Psych Exam: Positive: Mental status NL, Anxiety Assessment /Plan Assessment Mr. Campbell is a 29 year old male with depression, opioid dependance, and alcohol abuse here with N/V/D and alcohol intoxication. He will be provided with supportive care and IV fluids as he has not been able to tolerate orals. Suboxone had to be held due to qTC prolongation which may be secondary to electrolyte abnormality. Plan/VTE VTE Prophylaxis Ordered?: Yes Plan 1. Alcohol intoxication -IV fluid -Daily multivitamin, folate, thiamine -Fall and seizure precautions 2. Intractable N/V -Reglan, IVF and advance diet as tolerated 3. Opiate dependence -qTC prolong, Suboxone held -Not in withdrawal 4. Hypokalemia and hypomagnesemia -Replete and follow -May be causing qTC prolongation 5. Tobacco abuse -Nicotine patch 6. Depression -Zoloft 7. DVT ppx -Lovenox VS, I&O, 24H, Fishbone Vital Signs/I&O Vital Signs Date Time Temp Pulse Resp B/P (MAP) Pulse Ox O2 Delivery O2 Flow Rate FiO2 04/01/20 16:00 98.8 100 20 121/84 (96) 99 Room Air I&O- Last 24 Hours up to 6 AM 04/01/20 06:00 Intake Total 1320 ml Balance 1320 ml Laboratory Data 24H LABS Laboratory Tests 2 04/01/20 06:34: Nucleated Red Blood Cells % (auto) 0.0, Anion Gap 12, Glomerular Filtration Rate > 60.0, Calcium Level 8.2L, Magnesium Level 1.5L, Total Bilirubin 1.2#H, Aspartate Amino Transf (AST/SGOT) 641H, Alanine Aminotransferase (ALT/SGPT) 127H, Alkaline Phosphatase 245H, Total Protein 5.8L, Albumin 3.0L, Albumin/Globulin Ratio 1.1 04/01/20 14:06: Anion Gap 7L, Glomerular Filtration Rate > 60.0, Calcium Level 8.0L, Troponin I < 0.02 CBC/BMP Laboratory Tests 04/01/20 06:34 04/01/20 14:06 Microbiology Microbiology 03/31/20 Respiratory Virus Panel (PCR) ([facility]) - Final, Complete BRET PAIGE DO Apr 01, 2020 20:42
[2020-04-02] VITALS (9 sets, daily range): BP systolic 109–128; BP diastolic 76–87
[2020-04-02] MEDS: LORazepam 2 MG TAB PO PRN (00:46)
[2020-04-02 06:14] LABS: HEMATOCRIT 35.6 % (42.0-52.0); HEMOGLOBIN 11.3 g/dl (13.5-17.5); MEAN CORPUSCULAR HEMOGLOBIN 30.8 pg (27.0-33.0); MEAN CORPUSCULAR HGB CONC 31.7 g/dl (32.0-36.5); PLATELET COUNT, AUTOMATED 117 10^3/uL (150-450); RED BLOOD COUNT 3.67 10^6/uL (4.30-6.10); WHITE BLOOD COUNT 8.2 10^3/uL (4.0-10.0)
[2020-04-02 06:33] LABS: BLOOD UREA NITROGEN 3 MG/DL (7-18); CALCIUM LEVEL 8.3 MG/DL (8.5-10.1); CARBON DIOXIDE LEVEL 26 MEQ/L (21-32); CHLORIDE LEVEL 102 MEQ/L (98-107); CREATININE FOR GFR 0.46 MG/DL (0.70-1.30); GLOMERULAR FILTRATION RATE > 60.0 (>60); GLUCOSE, FASTING 97 MG/DL (70-100); MAGNESIUM LEVEL 2.2 MG/DL (1.8-2.4); POTASSIUM SERUM 3.1 MEQ/L (3.5-5.1); SODIUM LEVEL 137 MEQ/L (136-145)
[2020-04-02] MEDS: SERTRALINE 100 MG TAB PO SCH (08:46)
[2020-04-02] MEDS: ENOXAPARIN 40MG/0.4ML SYRINGE (J1650 PER 10MG) SC SCH (08:46)
[2020-04-02] MEDS: MULTIVITAMINS/MINERALS THERAP 1 TAB PO SCH (08:46)
[2020-04-02] MEDS: METOCLOPRAMIDE INJ 10MG/2ML VIAL (J2765 PER 1) IV SCH ×3 (08:46→20:34)
[2020-04-02] MEDS: THIAMINE 100 MG TAB PO SCH ×2 (08:46→20:33)
[2020-04-02] MEDS: FOLIC ACID 1 MG TAB PO SCH (08:46)
[2020-04-02] MEDS: NICOTINE 21MG/24HR 1 EA TRANSDERMAL TD SCH (08:47)
[2020-04-02] MEDS: ACETAMINOPHEN TAB 650MG DOSE (2X325MG) PO PRN (08:59)
[2020-04-02] MEDS ORDERED: POTASSIUM CHLORIDE 10 MEQ SR TABLET PO ONE (09:00)
[2020-04-02] MEDS: PROPRANOLOL 60 MG LA CAP PO SCH (10:37)
[2020-04-02] MEDS: NS 1,000 ML IV SCH ×2 (10:39→22:45)
[2020-04-02] MEDS ORDERED: LORazepam 1 MG TAB PO PRN (12:00)
[2020-04-02] MEDS: BUPRENORPHINE/NALOXONE 8-2MG SUBLINGUAL TABLET(SUBOXONE) SL SCH (12:57)
[2020-04-02 13:39] LABS: BLOOD UREA NITROGEN 4 MG/DL (7-18); CALCIUM LEVEL 8.2 MG/DL (8.5-10.1); CARBON DIOXIDE LEVEL 25 MEQ/L (21-32); CHLORIDE LEVEL 102 MEQ/L (98-107); CREATININE FOR GFR 0.48 MG/DL (0.70-1.30); GLOMERULAR FILTRATION RATE > 60.0 (>60); GLUCOSE, FASTING 95 MG/DL (70-100); POTASSIUM SERUM 3.1 MEQ/L (3.5-5.1); SODIUM LEVEL 136 MEQ/L (136-145)
[2020-04-02 14:24] LABS: CLOSTRIDIUM DIFFICILE PCR POSITIVE (NEGATIVE)
[2020-04-02 15:42] LABS: BLOOD UREA NITROGEN 4 MG/DL (7-18); CALCIUM LEVEL 8.1 MG/DL (8.5-10.1); CARBON DIOXIDE LEVEL 25 MEQ/L (21-32); CHLORIDE LEVEL 103 MEQ/L (98-107); CREATININE FOR GFR 0.61 MG/DL (0.70-1.30); GLOMERULAR FILTRATION RATE > 60.0 (>60); GLUCOSE, FASTING 106 MG/DL (70-100); POTASSIUM SERUM 3.2 MEQ/L (3.5-5.1); SODIUM LEVEL 137 MEQ/L (136-145)
[2020-04-02] MEDS: VANCOMYCIN ORAL SOL 250MG/5ML ORAL SYRINGE PO SCH (17:00)
--- NOTE | 2020-04-02 17:53 | ECGEPIP ---
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
--- NOTE | 2020-04-02 18:13 | ECGEPIP ---
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
--- NOTE | 2020-04-02 21:36 | IPNPDOC ---
Subjective Date Seen The patient was seen on 04/02/20. Subjective Chief Complaint/HPI Mr. Warren is a 29 year old male with depression, alcohol abuse, and opiate dependence here with epigastric pain, intractable vomiting, and diarrhea. Overnight, his heart rate increased to 180 while standing. When he sat down, heart rate returned to normal. Otherwise, he has been having diarrhea. Check stool for C.diff which was positive. First occurrence. No recent antibiotic use, but he was in a hospital about 1 month ago. Diarrhea started a few day prior to admission. Otherwise, denies fever/chills, chest pain or dysuria. He does have abdominal pain. Objective Physical Examination General Exam: Positive: Alert, Cooperative, Mild Distress Eye Exam: Positive: EOMI; Negative: Sclera icteric ENT Exam: Positive: Atraumatic Neck Exam: Positive: Supple Chest Exam: Positive: Clear to auscultation; Negative: Wheezing Heart Exam: Positive: Tachycardic, Regular Rhythm Abdomen Exam: Positive: Tenderness; Negative: Soft (Gaurding) Extremity Exam: Negative: Edema Neuro Exam: Positive: Normal Speech Psych Exam: Positive: Mental status NL, Anxiety Assessment /Plan Assessment Mr. Campbell is a 29 year old male with depression, opioid dependance, and alcohol abuse here with N/V/D and alcohol intoxication. He will be provided with supportive care and IV fluids as he has not been able to tolerate orals. Suboxone had to be held due to qTC prolongation which may be secondary to electrolyte abnormality. Today, his qTC improved and was restarted on Suboxone Otherwise, he has been having diarrhea. C.diff was checked which was positive. First occurrence. Denies recent antibiotic use but was in a hospital 1 month ago. The C.diff associated diarrhea may have caused his electrolyte imbalance. In terms of his tremors, he notices that alcohol improves his tremors. Started on Propanolol to see if it would help His rapid heart rate may be secondary to POTS (postural tachycardia syndrome) which may be secondary to dehydration from C.diff diarrhea. Plan/VTE VTE Prophylaxis Ordered?: Yes Plan 1. C.diff associated diarrhea -No history of C.diff -No recent antibiotics -Was in hospital 1 month ago -PO vancomycin for 10 days 2. Hypokalemia and Hypomagnesemia -Secondary to both alcoholism and C.diff associated diarrhea -Continue to replete and monitor 3. Postural Orthostatic Tachycardia Syndrome (POTS) -Tachycardia may be secondary to POTS which may be secondary to dehydration from diarrhea -Continue IVF 4. Essential tremors -Alcohol improves tremors -Will try propranolol 5. Alcohol intoxication -IV fluid -Daily multivitamin, folate, thiamine -Fall and seizure precautions -Resolved 6. Intractable N/V -Reglan, IVF and advance diet as tolerated -Resolved 7. Opiate dependence -Suboxone 8. Tobacco abuse -Nicotine patch 9. Depression -Zoloft 10. DVT ppx -Lovenox VS, I&O, 24H, Fishbone Vital Signs/I&O Vital Signs Date Time Temp Pulse Resp B/P (MAP) Pulse Ox O2 Delivery O2 Flow Rate FiO2 04/02/20 14:00 99.5 99 19 128/82 (97) 98 Room Air I&O- Last 24 Hours up to 6 AM 04/02/20 06:00 Intake Total 1100 ml Output Total 0 ml Balance 1100 ml Laboratory Data 24H LABS Laboratory Tests 2 04/02/20 05:47: Nucleated Red Blood Cells % (auto) 0.0, Anion Gap 9, Glomerular Filtration Rate > 60.0, Calcium Level 8.3L, Magnesium Level 2.2 04/02/20 11:54: Clostridium difficile [id number] PRESUMPTIVE NEGATIVE, Clostridium difficile Toxin (PCR) POSITIVEA 04/02/20 12:54: Anion Gap 9, Glomerular Filtration Rate > 60.0, Calcium Level 8.2L 04/02/20 15:05: Anion Gap 9, Glomerular Filtration Rate > 60.0, Calcium Level 8.1L CBC/BMP Laboratory Tests 04/02/20 05:47 04/02/20 12:54 04/02/20 15:05 Microbiology Microbiology 03/31/20 Respiratory Virus Panel (PCR) ([facility]) - Final, Complete BRET PAIGE DO Apr 02, 2020 21:36
[2020-04-03 06:00] VITALS: BP 123/89
[2020-04-03] MEDS: VANCOMYCIN ORAL SOL 250MG/5ML ORAL SYRINGE PO SCH ×2 (06:03)
[2020-04-03 06:09] VITALS: BP_SYST 123; BP_SYST 124; BP_DIAS 89; BP_DIAS 91; BP_DIAS 93
[2020-04-03 07:03] LABS: HEMOGLOBIN 12.1 g/dl (13.5-17.5); MEAN CORPUSCULAR HEMOGLOBIN 31.3 pg (27.0-33.0); MEAN CORPUSCULAR HGB CONC 31.8 g/dl (32.0-36.5); MEAN CORPUSCULAR VOLUME 98.4 fl (80.0-96.0); PLATELET COUNT, AUTOMATED 112 10^3/uL (150-450); RED BLOOD COUNT 3.86 10^6/uL (4.30-6.10); WHITE BLOOD COUNT 7.1 10^3/uL (4.0-10.0)
[2020-04-03 07:31] LABS: BLOOD UREA NITROGEN 6 MG/DL (7-18); CALCIUM LEVEL 8.4 MG/DL (8.5-10.1); CARBON DIOXIDE LEVEL 25 MEQ/L (21-32); CHLORIDE LEVEL 104 MEQ/L (98-107); CREATININE FOR GFR 0.49 MG/DL (0.70-1.30); GLOMERULAR FILTRATION RATE > 60.0 (>60); GLUCOSE, FASTING 101 MG/DL (70-100); POTASSIUM SERUM 3.2 MEQ/L (3.5-5.1); SODIUM LEVEL 137 MEQ/L (136-145)
[2020-04-03] MEDS ORDERED: POTASSIUM CHLORIDE 10 MEQ SR TABLET PO ONE (08:15)
[2020-04-03] MEDS: FOLIC ACID 1 MG TAB PO SCH (08:36)
[2020-04-03] MEDS: MULTIVITAMINS/MINERALS THERAP 1 TAB PO SCH (08:36)
[2020-04-03 08:38] VITALS: BP 119/82
[2020-04-03] MEDS: PROPRANOLOL 60 MG LA CAP PO SCH (08:38)
[2020-04-03] MEDS: SERTRALINE 100 MG TAB PO SCH (08:38)
[2020-04-03] MEDS: THIAMINE 100 MG TAB PO SCH (08:38)
[2020-04-03] MEDS: NICOTINE 21MG/24HR 1 EA TRANSDERMAL TD SCH (08:39)
[2020-04-03] MEDS: METOCLOPRAMIDE INJ 10MG/2ML VIAL (J2765 PER 1) IV SCH (08:40)
[2020-04-03] MEDS: BUPRENORPHINE/NALOXONE 8-2MG SUBLINGUAL TABLET(SUBOXONE) SL SCH (08:40)
[2020-04-03] MEDS: NS 1,000 ML IV SCH (08:40)
[2020-04-03] MEDS: ENOXAPARIN 40MG/0.4ML SYRINGE (J1650 PER 10MG) SC SCH (09:00)
[2020-04-03] MEDS ORDERED: INFLUENZA QUADRIVALENT PF VACCINE 0.5ML SYRINGE IM PRN (09:00)
--- NOTE | 2020-04-04 21:06 | DS.PDOC ---
Discharge Summary General Date of Admission Mar 31, 2020 at 11:55 Date of Discharge Apr 03, 2020 Attending Physician: BRET PAIGE DO Discharge Summary PROCEDURES PERFORMED DURING STAY: None ADMITTING DIAGNOSES: 1. Alcohol intoxication 2. Intractable nausea and vomiting 3. Opiate dependence 4. Dysuria 5. Tobacco abuse 6. Depression 7. Transaminitis DISCHARGE DIAGNOSES: 1. C. difficile associated diarrhea 2. Hypokalemia and hypomagnesemia 3. Postural orthostatic tachycardia syndrome 4. Essential tremors 5. Alcohol intoxication 6. Tremors with nausea vomiting 7. Opiate dependence 8. Tobacco abuse 9. Depression COMPLICATIONS/CHIEF COMPLAINT: Alcohol Abuse. HISTORY OF PRESENT ILLNESS: Mr. Warren is a 29 year old male with alcohol abuse, opioid dependence, and depression who comes to the emergency department for intractable nausea and vomiting and epigastric pain. Patient's blood alcohol level was elevated. While in the ED he was still intoxicated, but was able to answer some basic questions. He says that he's been binge drinking more than normal over the past few days. He says that he drinks 1 L of vodka a day. Alcohol helps stop his shaking and when he stops drinking he shakes more. Otherwise, he has a history of opioid dependence and is in the Suboxone program. His last dose of Suboxone was 2 days prior to admission. He didn't take it the day prior because he was too drunk to remember. HOSPITAL COURSE: During his hospitalization, he was given IV fluids. He c ontinued to have watery diarrhea. He was checked for C. difficile which was positive. This is the first episode of C. difficile. He started on oral Vanco. He started to feel better and he was eating. Spoke about his essential tremors. Started him on propranolol with a warning that he should not take cocaine if he is going to be on a beta debbie. Otherwise, it is noted that every time he stood up his heart rate would increase. One night, the heart rate would increase up to 180 when he walked to the bathroom. He denied any symptoms. I wanted to keep him longer to give him more oral vancomycin and give him more fluids, but he felt well enough to go home. He told me that he did not want to be in the hospital anymore. I explained that if he leaves AGAINST MEDICAL ADVICE he could become lightheaded and dizzy, have a fall, become septic, or . He understood and still wanted to leave AGAINST MEDICAL ADVICE. He signed the paperwork and left. DISCHARGE MEDICATIONS: Please see below. ALLERGIES: Please see below. PHYSICAL EXAMINATION ON DISCHARGE: VITAL SIGNS: Please see below. GENERAL: Comfortable, in no apparent distress. HEENT: Head normocephalic/atraumatic, EOMI, sclera clear. NECK: Supple RESPIRATORY: Lungs clear to auscultation bilaterally, no rales, wheeze or rhonchi. CARDIOVASCULAR: Regular rate, tachycardic ABDOMEN: Soft. Normal bowel sounds. MUSCLE SKELETAL: Muscle strength 5/5 in all extremities. NEUROLOGICAL: CN 312 grossly intact, no focal deficits noted. PSYCHOLOGICAL: Anxious LABORATORY DATA: Please see below. IMAGING: CT abd/pelvis 1. There are 11 calcified renal stones stones throughout the left kidney but no evidence of obstruction at this time. The stones range in size from 2 mm to 7mm. 2. Fatty infiltration of the liver. PROGNOSIS: Guarded ACTIVITY: As tolerated DIET: As tolerated DISCHARGE PLAN: AGAINST MEDICAL ADVICE DISPOSITION: 07 Against Medical Advice. DISCHARGE INSTRUCTIONS: 1. He should return to the ED if he were to develop any further fever or chills, nausea or vomiting, abdominal pain, lightheadedness or dizziness, syncope, or falls. If he feels unwell he should return to the ED 2. Follow with her PCP within 5 days DISCHARGE CONDITION: Guarded Total time spent on discharge Planning, Discharge Summary, Medication Reconciliation: 25 Minutes Vital Signs/I&Os Vital Signs Date Time Temp Pulse Resp B/P (MAP) Pulse Ox O2 Delivery O2 Flow Rate FiO2 04/03/20 08:38 100 119/82 04/03/20 06:00 96.5 20 99 Room Air I&O- Last 24 Hours up to 6 AM 04/03/20 06:00 Intake Total 1935 ml Output Total 0 ml Balance 1935 ml Laboratory Data Labs 24H Laboratory Tests 2 04/03/20 06:51: Nucleated Red Blood Cells % (auto) 0.0, Anion Gap 8, Glomerular Filtration Rate > 60.0, Calcium Level 8.4L CBC/BMP Laboratory Tests 04/03/20 06:51 Microbiology Microbiology 03/31/20 Respiratory Virus Panel (PCR) ([facility]) - Final, Complete Discharge Medications Scheduled Buprenorphine HCl/Naloxone HCl (Suboxone 8 mg-2 mg Sl Film) 1 Each Film, 1 STRIP SL DAILY, (Reported) Sertraline HCl (Sertraline HCl) 100 Mg Tablet, 150 MG PO DAILY, (Reported) Allergies Coded Allergies: No Known Drug Allergies (Verified Allergy, Unknown, 07/28/19) BRET PAIGE DO Apr 03, 2020 23:40
== END 2020-04-03 11:14 | disposition left against medical advice (07) ==
LOC: M ED 11:54 → M ED INP 11:55 → ENRESERV 21:29 → M MSPAV 22:34
PROVIDERS: ADMIT Family Medicine; ATTEND Internal Medicine
DX: A04.72 Enterocolitis due to Clostridium difficile, not specified as recurrent (principal); E87.6 Hypokalemia; E83.42 Hypomagnesemia; I49.8 Other specified cardiac arrhythmias; G25.0 Essential tremor; F10.129 Alcohol abuse with intoxication, unspecified; R11.2 Nausea with vomiting, unspecified; F11.20 Opioid dependence, uncomplicated; F17.218 Nicotine dependence, cigarettes, with other nicotine-induced disorders; F32.9 Major depressive disorder, single episode, unspecified; R30.0 Dysuria; R74.01 Elevation of levels of liver transaminase levels; R13.10 Dysphagia, unspecified
CPT/HCPCS: 36415; 70450; 74177; 80047; 80048; 80053; 80076; 80307; 82550; 82803; 83690; 83735; 83930; 84443; 85025; 85027; 86705; 86709; 86780; 86803; 87340; 87389; 87486; 87493; 87581; 87633; 87798; 93005; 93041; 96361; 96372; 96374; 96375; 96376; 99285; G0480; J1650; J2060; J2765; J3411; J3475; Q9967

== ENCOUNTER 2020-04-05 14:37 | Observation (INO) | payer OTHER ==
[2020-04-05] MEDS: THIAMINE 100 MG TAB PO SCH
[2020-04-05] MEDS ORDERED: NS 1,000 ML IV ONE ×2 (15:15→17:15)
[2020-04-05] MEDS ORDERED: ONDANSETRON 4MG/2ML VIAL IV ONE (15:15)
[2020-04-05 15:25] LABS: BASO # 0.1 10^3/uL (0.0-0.2); BASO % 1.7 % (0.0-1.0); EOS # 0.3 10^3/uL (0.0-0.5); EOS % 3.6 % (0.0-3.0); HEMATOCRIT 39.3 % (42.0-52.0); HEMOGLOBIN 12.6 g/dl (13.5-17.5); MEAN CORPUSCULAR HEMOGLOBIN 32.1 pg (27.0-33.0); MEAN CORPUSCULAR HGB CONC 32.1 g/dl (32.0-36.5); MONO # 0.8 10^3/uL (0.0-0.8); MONO % 11.1 % (0.0-5.0); NEUTROPHILS # 2.6 10^3/uL (1.5-8.5); NEUTROPHILS % 37.4 % (36.0-66.0); PLATELET COUNT, AUTOMATED 240 10^3/uL (150-450); RED BLOOD COUNT 3.93 10^6/uL (4.30-6.10); WHITE BLOOD COUNT 6.9 10^3/uL (4.0-10.0)
[2020-04-05 16:15] LABS: ALBUMIN 3.3 GM/DL (3.2-5.2); ALT/SGPT 132 U/L (12-78); BILIRUBIN,DIRECT 0.1 MG/DL (0.0-0.2); BILIRUBIN,TOTAL 0.2 MG/DL (0.2-1.0); BLOOD UREA NITROGEN 7 MG/DL (7-18); CALCIUM LEVEL 8.6 MG/DL (8.5-10.1); CARBON DIOXIDE LEVEL 26 MEQ/L (21-32); CHLORIDE LEVEL 111 MEQ/L (98-107); CREATININE FOR GFR 0.64 MG/DL (0.70-1.30); ETHYL ALCOHOL (ETHANOL) 0.486 % (0.000-0.010); GLOMERULAR FILTRATION RATE > 60.0 (>60); GLUCOSE, FASTING 123 MG/DL (70-100); LIPASE 265 U/L (73-393); POTASSIUM SERUM 3.1 MEQ/L (3.5-5.1); SODIUM LEVEL 147 MEQ/L (136-145); TOTAL PROTEIN 6.4 GM/DL (6.4-8.2)
[2020-04-05] MEDS ORDERED: POTASSIUM CHLORIDE 10 MEQ SR TABLET PO ONE (16:30)
[2020-04-05] MEDS ORDERED: ISOVUE-370 76% 100ML VIAL As Ordered ONE (16:30)
--- NOTE | 2020-04-05 16:52 | REP ---
INDICATION: left sided abd pain. COMPARISON: Comparison CT study March 31, 2020.. TECHNIQUE: Helical scanning was acquired and 4 mm axial images are re-formatted. Coronal and sagittal MPR images were generated and reviewed. The contrast enhancement dose is 100 mL of intravenous Isovue 370. FINDINGS: Digital preliminary stencil inspector radiograph demonstrates a few loops of air-filled small bowel in the right central abdomen question mild ileus. Monitoring electrodes are seen. Bowel gas pattern is otherwise unremarkable. On axial CT images the lung bases are clear. There is mild diffuse fatty infiltration of the liver. There is a small subcentimeter cyst is in the posterior segment of the right lobe superiorly unchanged. There are some fat sparing near the gallbladder. No focal splenic lesion is seen. There is an accessory splenule in the left upper quadrant. Normal adrenal glands are seen. No abnormality is noted in the pancreas. The kidneys enhance symmetrically. Numerous intrarenal nephrolithiasis is again seen in the left kidney. The largest stone is in the upper pole measuring 7 mm in greatest diameter. These intrarenal calculi appear to be unchanged in number and distribution from the prior study. There is no evidence hydronephrosis on either side. No ureteral calculus is appreciated. No bladder calculus is seen. The urinary bladder is mildly distended at the time of CT scanning. There is a mild pattern of mural thickening involving the colon in the rectosigmoid, descending, ascending and to a lesser extent transverse segments. This is suggestive of enterocolitis. There are some fluid-filled loops borderline caliber small bowel. No obstructive lesion is appreciated. No abdominal wall defect is seen. A normal appendix is noted in the right lower quadrant. No bony lesion is seen. IMPRESSION: Moderate diffuse fatty infiltration of the liver. Intrarenal nephrolithiasis left kidney again noted without evidence of hydronephrosis or ureteral calculus. Enterocolitis pattern with mild mural thickening involving the colon. This is similar to the prior study. Normal appendix seen. <Electronically signed by Thad Campbell > 04/05/20 [id number]
[2020-04-05] MEDS ORDERED: ACETAMINOPHEN TAB 650MG DOSE (2X325MG) PO PRN (17:30)
--- NOTE | 2020-04-05 17:47 | HPEPDOC ---
General Date of Admission 04/05/20 Date of Service: Apr 05, 2020 Chief Complaint The patient is a 29-year-old male admitted with a reason for visit of ETOH. Source: Patient Exam Limitations: Intoxication Timing/Duration: Day(s) Severity: Moderate History of Present Illness Patient is 29-year-old male history of depression and alcohol abuse presented hospital with continuous diarrhea. Patient was admitted few days ago, diagnosed with C. difficile colitis and left the hospital AMA 2 days ago. Patient didn't take vancomycin by mouth. Patient stated that he continues to have diarrhea. Also he has been drinking vodka and when I saw him he was intoxicated with EtOH level 0.4. Patient was found to have potassium 3.1, transaminitis, vital signs significant for tachycardia with heart rate 130. CT abdomen/pelvis showed Moderate diffuse fatty infiltration of the liver. Intrarenal nephrolithiasis left kidney again noted without evidence of hydronephrosis or ureteral calculus. Enterocolitis pattern with mild mural thickening involving the colon. This is similar to the prior study. Normal appendix seen. Home Medications Scheduled Buprenorphine HCl/Naloxone HCl (Suboxone 8 mg-2 mg Sl Film) 1 Each Film, 1 STRIP SL DAILY, (Reported) Sertraline HCl (Sertraline HCl) 100 Mg Tablet, 150 MG PO DAILY, (Reported) Allergies Coded Allergies: No Known Drug Allergies (Verified Allergy, Unknown, 07/28/19) Past Medical History Medical History Depression Alcohol abuse Opiate dependence Surgical History Denies any previous surgeries Family History Patient stated that both parents are healthy Social History * Smoker: current smoker Alcohol: heavy Drugs: heroin, other (on Suboxone therapy) A-FIB/CHADSVASC A-FIB History Current/History of A-Fib/PAF?: No Current PO Anticoag Therapy: No Review of Systems Constitutional: Denies: Chills, Fever Eyes: Denies: Pain ENT: Denies: Head Aches Skin: Denies: Rash Cardiovascular: Denies: Chest Pain Gastrointestinal: Reports: Diarrhea; Denies: Nausea, Vomiting Genitourinary: Denies: Dysuria, Frequency Hematologic: Denies: Bruising Endocrine: Denies: Polydipsia, Polyphagia Musculoskeletal: Denies: Neck Pain Neurological: Denies: Weakness Psych: Reports: Mood Normal Physical Examination General Exam: Positive: Alert, Cooperative Eye Exam: Positive: PERRLA ENT Exam: Positive: Atraumatic Neck Exam: Positive: Supple; Negative: JVD Chest Exam: Positive: Clear to auscultation Heart Exam: Positive: Tachycardic Telemetry: Positive: Sinus Abdomen Exam: Positive: Normal bowel sounds Extremity Exam: Negative: Clubbing, Cyanosis Skin Exam: Positive: Nl turgor and temperature Neuro Exam: Positive: Strength at 5/5 X4 ext Psych Exam: Positive: Mental status NL Vital Signs Vital Signs Date Time Temp Pulse Resp B/P (MAP) Pulse Ox O2 Delivery O2 Flow Rate FiO2 04/05/20 17:01 135 16 101/63 (76) 97 Room Air 04/05/20 14:37 97.6 Laboratory Data Labs 24H Laboratory Tests 2 04/05/20 15:07: Immature Granulocyte % (Auto) 2.2, Neutrophils (%) (Auto) 37.4, Lymphocytes (%) (Auto) 44.0, Monocytes (%) (Auto) 11.1H, Eosinophils (%) (Auto) 3.6H, Basophils (%) (Auto) 1.7H, Neutrophils # (Auto) 2.6, Lymphocytes # (Auto) 3.0, Monocytes # (Auto) 0.8, Eosinophils # (Auto) 0.3, Basophils # (Auto) 0.1, Nucleated Red Blood Cells % (auto) 0.0, Anion Gap 10, Glomerular Filtration Rate > 60.0, Calcium Level 8.6, Magnesium Level 2.0, Total Bilirubin 0.2, Direct Bilirubin 0.1, Aspartate Amino Transf (AST/SGOT) 331H, Alanine Aminotransferase (ALT/SGPT) 132H, Alkaline Phosphatase 203H, Total Protein 6.4, Albumin 3.3, Albumin/Globulin Ratio 1.1, Lipase 265, Ethyl Alcohol Level 0.486H CBC/BMP Laboratory Tests 04/05/20 15:07 Assessment/Plan Patient is 29-year-old male [facility] of [facility]. Patient was admitted few days ago, diagnosed with C. difficile colitis and left the hospital AMA 2 days ago. Patient didn't take vancomycin by mouth. Patient stated that he continues to have diarrhea. Also he has been drinking vodka and when I saw him he was intoxicated with EtOH level 0.4. Patient was found to have potassium 3.1, transaminitis, vital signs significant for tachycardia with heart rate 130. CT abdomen/pelvis showed Moderate diffuse fatty infiltration of the liver. Intrarenal nephrolithiasis left kidney again noted without evidence of hydronephrosis or ureteral calculus. Enterocolitis pattern with mild mural thickening involving the colon. This is similar to the prior study. Normal appendix seen. Problems (1) C. 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
[2020-04-05] MEDS: KCL 20MEQ in NS 1000ML 1,000 ML IV SCH (18:38)
[2020-04-05] MEDS: VANCOMYCIN ORAL SOL 250MG/5ML ORAL SYRINGE PO SCH (20:36)
[2020-04-06 00:44] LABS: BLOOD UREA NITROGEN 6 MG/DL (7-18); CALCIUM LEVEL 7.6 MG/DL (8.5-10.1); CARBON DIOXIDE LEVEL 26 MEQ/L (21-32); CHLORIDE LEVEL 113 MEQ/L (98-107); CREATININE FOR GFR 0.61 MG/DL (0.70-1.30); GLOMERULAR FILTRATION RATE > 60.0 (>60); GLUCOSE, FASTING 107 MG/DL (70-100); POTASSIUM SERUM 3.5 MEQ/L (3.5-5.1); SODIUM LEVEL 147 MEQ/L (136-145)
[2020-04-06] MEDS: VANCOMYCIN ORAL SOL 250MG/5ML ORAL SYRINGE PO SCH ×4 (01:28→17:22)
[2020-04-06] MEDS: LORazepam 2 MG TAB PO PRN ×6 (01:36→19:59)
[2020-04-06] MEDS: KCL 20MEQ in NS 1000ML 1,000 ML IV SCH ×2 (02:37→10:47)
[2020-04-06 06:53] LABS: HEMATOCRIT 31.3 % (42.0-52.0); MEAN CORPUSCULAR HEMOGLOBIN 31.8 pg (27.0-33.0); MEAN CORPUSCULAR HGB CONC 31.3 g/dl (32.0-36.5); MEAN CORPUSCULAR VOLUME 101.6 fl (80.0-96.0); PLATELET COUNT, AUTOMATED 205 10^3/uL (150-450); RED BLOOD COUNT 3.08 10^6/uL (4.30-6.10); WHITE BLOOD COUNT 7.2 10^3/uL (4.0-10.0)
[2020-04-06 07:08] LABS: BLOOD UREA NITROGEN 5 MG/DL (7-18); CALCIUM LEVEL 7.5 MG/DL (8.5-10.1); CARBON DIOXIDE LEVEL 26 MEQ/L (21-32); CHLORIDE LEVEL 110 MEQ/L (98-107); CREATININE FOR GFR 0.56 MG/DL (0.70-1.30); GLOMERULAR FILTRATION RATE > 60.0 (>60); GLUCOSE, FASTING 87 MG/DL (70-100); MAGNESIUM LEVEL 1.5 MG/DL (1.8-2.4); POTASSIUM SERUM 3.8 MEQ/L (3.5-5.1); SODIUM LEVEL 145 MEQ/L (136-145)
[2020-04-06 07:21] LABS: HEMOGLOBIN 9.8 g/dl (13.5-17.5)
[2020-04-06] MEDS ORDERED: VANC125C3 PO (08:05)
[2020-04-06] MEDS: MAGNESIUM CHLORIDE 64 MG TABCR (SLO MAG) PO SCH (09:27)
[2020-04-06] MEDS: FOLIC ACID 1 MG TAB PO SCH (09:27)
[2020-04-06] MEDS: MULTIVITAMINS/MINERALS THERAP 1 TAB PO SCH (09:28)
[2020-04-06] MEDS: SERTRALINE HCL 50 MG TAB PO SCH (09:28)
[2020-04-06] MEDS: THIAMINE 100 MG TAB PO SCH ×2 (09:30→19:59)
[2020-04-06] MEDS: BUPRENORPHINE/NALOXONE 8-2MG SUBLINGUAL TABLET(SUBOXONE) SL SCH (09:30)
[2020-04-06] MEDS: ENOXAPARIN 40MG/0.4ML SYRINGE (J1650 PER 10MG) SC SCH (09:31)
[2020-04-06 10:39] LABS: BLOOD UREA NITROGEN 5 MG/DL (7-18); CALCIUM LEVEL 7.5 MG/DL (8.5-10.1); CARBON DIOXIDE LEVEL 25 MEQ/L (21-32); CHLORIDE LEVEL 111 MEQ/L (98-107); CREATININE FOR GFR 0.56 MG/DL (0.70-1.30); GLOMERULAR FILTRATION RATE > 60.0 (>60); GLUCOSE, FASTING 86 MG/DL (70-100); SODIUM LEVEL 144 MEQ/L (136-145)
[2020-04-06 12:50] VITALS: BP 132/85
--- NOTE | 2020-04-06 13:35 | IPNPDOC ---
Text Note Date of Service The patient was seen on 04/06/20. NOTE Subjective: In the morning patient developed hands tremulousness with chills. Objective: GENERAL APPEARANCE: In moderate distress HEENT: no scleral icterus, no JVD, EOMI CARDIOVASCULAR: S1S2 LUNGS: CTA ABDOMEN: soft & not tender w palpitation MUSCULOSKELETAL: no cyanosis, no swelling INTEGUMENT: no generalized palor NEUROLOGICAL: cranial nerve function from 2-12 intact intact, follows commands, speech not dysarthric, hands tremor Assessment/Plan Patient is 29-year-old male history of depression and alcohol abuse presented hospital with continuous diarrhea. Patient was admitted few days ago, diagnosed with C. difficile colitis and left the hospital AMA 2 days ago. Patient didn't take vancomycin by mouth. Patient stated that he continues to have diarrhea. Also he has been drinking vodka and when I saw him he was intoxicated with EtOH level 0.4. Patient was found to have potassium 3.1, transaminitis, vital signs significant for tachycardia with heart rate 130. CT abdomen/pelvis showed Moderate diffuse fatty infiltration of the liver. Intrarenal nephrolithiasis left kidney again noted without evidence of hydronephrosis or ureteral calculus. Enterocolitis pattern with mild mural thickening involving the colon. This is similar to the prior study. Normal appendix seen. Problems (1) C. difficile diarrhea Continue oral vancomycin 150 mg every 6 hours (2) Alcohol abuse/alcohol withdrawal Patient developed hands tremor. There is concern for alcohol withdrawal. 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
[2020-04-06 14:00] VITALS: BP 122/82
[2020-04-06 15:42] VITALS: BP 140/86
[2020-04-06] MEDS: D5W/0.45% SODIUM CHLORIDE 1,000 ML IV SCH ×2 (15:51→19:59)
[2020-04-06 18:23] LABS: BLOOD UREA NITROGEN 4 MG/DL (7-18); CALCIUM LEVEL 7.8 MG/DL (8.5-10.1); CARBON DIOXIDE LEVEL 28 MEQ/L (21-32); CHLORIDE LEVEL 111 MEQ/L (98-107); CREATININE FOR GFR 0.61 MG/DL (0.70-1.30); GLOMERULAR FILTRATION RATE > 60.0 (>60); GLUCOSE, FASTING 97 MG/DL (70-100); POTASSIUM SERUM 3.6 MEQ/L (3.5-5.1); SODIUM LEVEL 144 MEQ/L (136-145)
[2020-04-06 19:49] VITALS: BP 118/85
[2020-04-06 20:00] VITALS: BP 118/83
[2020-04-06 22:00] VITALS: BP 120/81
[2020-04-07 00:26] LABS: BLOOD UREA NITROGEN 4 MG/DL (7-18); CARBON DIOXIDE LEVEL 27 MEQ/L (21-32); CHLORIDE LEVEL 109 MEQ/L (98-107); CREATININE FOR GFR 0.63 MG/DL (0.70-1.30); GLOMERULAR FILTRATION RATE > 60.0 (>60); GLUCOSE, FASTING 105 MG/DL (70-100); POTASSIUM SERUM 3.7 MEQ/L (3.5-5.1); SODIUM LEVEL 143 MEQ/L (136-145)
[2020-04-07] MEDS: D5W/0.45% SODIUM CHLORIDE 1,000 ML IV SCH ×2 (00:57→05:36)
[2020-04-07] MEDS: VANCOMYCIN ORAL SOL 250MG/5ML ORAL SYRINGE PO SCH ×3 (00:57→11:24)
[2020-04-07 02:33] VITALS: BP 117/82
[2020-04-07 05:15] VITALS: BP 122/88
[2020-04-07] MEDS: LORazepam 2 MG TAB PO PRN ×2 (05:35→08:28)
[2020-04-07 06:00] VITALS: BP 122/88
[2020-04-07 06:58] LABS: BLOOD UREA NITROGEN 3 MG/DL (7-18); CARBON DIOXIDE LEVEL 28 MEQ/L (21-32); CHLORIDE LEVEL 103 MEQ/L (98-107); CREATININE FOR GFR 0.61 MG/DL (0.70-1.30); GLOMERULAR FILTRATION RATE > 60.0 (>60); GLUCOSE, FASTING 131 MG/DL (70-100); POTASSIUM SERUM 3.3 MEQ/L (3.5-5.1); SODIUM LEVEL 138 MEQ/L (136-145)
[2020-04-07] MEDS ORDERED: POTASSIUM CHLORIDE 10 MEQ SR TABLET PO ONE (08:00)
[2020-04-07 08:26] VITALS: BP 143/100
[2020-04-07] MEDS: FOLIC ACID 1 MG TAB PO SCH (08:28)
[2020-04-07] MEDS: BUPRENORPHINE/NALOXONE 8-2MG SUBLINGUAL TABLET(SUBOXONE) SL SCH (08:28)
[2020-04-07] MEDS: MULTIVITAMINS/MINERALS THERAP 1 TAB PO SCH (08:28)
[2020-04-07] MEDS: SERTRALINE HCL 50 MG TAB PO SCH (08:28)
[2020-04-07] MEDS: THIAMINE 100 MG TAB PO SCH (08:28)
[2020-04-07] MEDS: MAGNESIUM CHLORIDE 64 MG TABCR (SLO MAG) PO SCH (08:29)
[2020-04-07] MEDS: ENOXAPARIN 40MG/0.4ML SYRINGE (J1650 PER 10MG) SC SCH (08:29)
[2020-04-07] MEDS ORDERED: LORazepam 2 MG/ML VIAL IV PRN (09:15)
--- NOTE | 2020-04-07 10:39 | IPNPDOC ---
Text Note Date of Service The patient was seen on 04/07/20. NOTE Subjective: In the morning patient developed hands tremulousness with chills. Patient denied fever, chills, chest pain, dysuria Objective: GENERAL APPEARANCE: In moderate distress HEENT: no scleral icterus, no JVD, EOMI CARDIOVASCULAR: S1S2 LUNGS: CTA ABDOMEN: soft & not tender w palpitation MUSCULOSKELETAL: no cyanosis, no swelling INTEGUMENT: no generalized palor NEUROLOGICAL: cranial nerve function from 2-12 intact intact, follows commands, speech not dysarthric, hands tremor Assessment/Plan Patient is 29-year-old male history of depression and alcohol abuse presented hospital with continuous diarrhea. Patient was admitted few days ago, diagnosed with C. difficile colitis and left the hospital AMA 2 days ago. Patient didn't take vancomycin by mouth. Patient stated that he continues to have diarrhea. Also he has been drinking vodka and when I saw him he was intoxicated with EtOH level 0.4. Patient was found to have potassium 3.1, transaminitis, vital signs significant for tachycardia with heart rate 130. CT abdomen/pelvis showed Moderate diffuse fatty infiltration of the liver. Intrarenal nephrolithiasis left kidney again noted without evidence of hydronephrosis or ureteral calculus. Enterocolitis pattern with mild mural thickening involving the colon. This is similar to the prior study. Normal appendix seen. Problems (1) C. 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 Lorazepam [id number] every 4 hours (3) Tachycardia Most likely secondary to dehydration due to diarrhea and alcohol withdrawal EKG didn't show any acute ischemic changes Patient does not have any chest pain Telemetry Continue IV fluid VS,Fishbone, I+O VS, Fishbone, I+O Laboratory Tests 04/06/20 17:58 04/06/20 23:40 04/07/20 06:14 Vital Signs Date Time Temp Pulse Resp B/P (MAP) Pulse Ox O2 Delivery O2 Flow Rate FiO2 04/07/20 08:26 93 143/100 04/07/20 06:00 98.1 20 98 Room Air I&O- Last 24 Hours up to 6 AM 04/07/20 06:00 Intake Total 4750 ml Output Total 2025 ml Balance 2725 ml DROZHZHIN,MIKE DO Apr 07, 2020 10:39
[2020-04-07] MEDS ORDERED: LORazepam 2 MG/ML VIAL As Ordered ONE (11:17)
[2020-04-07] MEDS ORDERED: LORazepam 2 MG/ML VIAL IV SCH (12:00)
[2020-04-07 12:25] LABS: BLOOD UREA NITROGEN 2 MG/DL (7-18); CALCIUM LEVEL 8.3 MG/DL (8.5-10.1); CARBON DIOXIDE LEVEL 30 MEQ/L (21-32); CHLORIDE LEVEL 103 MEQ/L (98-107); CREATININE FOR GFR 0.48 MG/DL (0.70-1.30); GLOMERULAR FILTRATION RATE > 60.0 (>60); GLUCOSE, FASTING 110 MG/DL (70-100); POTASSIUM SERUM 3.6 MEQ/L (3.5-5.1); SODIUM LEVEL 139 MEQ/L (136-145)
[2020-04-07] MEDS ORDERED: NICOTINE 21MG/24HR 1 EA TRANSDERMAL TD PRN (13:00)
--- NOTE | 2020-04-07 16:42 | DS.PDOC ---
Discharge Summary General Date of Admission Apr 05, 2020 at 14:38 Date of Discharge 04/07/20 Discharge Summary PROCEDURES PERFORMED DURING STAY: [None]. ADMITTING DIAGNOSES: C. difficile diarrhea Alcohol abuse/alcohol withdrawal Tachycardia DISCHARGE DIAGNOSES: C. difficile diarrhea Alcohol abuse/alcohol withdrawal Tachycardia COMPLICATIONS/CHIEF COMPLAINT: Alcohol Abuse, C Diff. HISTORY OF PRESENT ILLNESS:Patient is 29-year-old male history of depression and alcohol abuse presented hospital with continuous diarrhea. Patient was admitted few days ago, diagnosed with C. difficile colitis and left the hospital AMA 2 days ago. Patient didn't take vancomycin by mouth. Patient stated that he continues to have diarrhea. Also he has been drinking vodka and when I saw him he was intoxicated with EtOH level 0.4. Patient was found to have potassium 3.1, transaminitis, vital signs significant for tachycardia with heart rate 130. CT abdomen/pelvis showed Moderate diffuse fatty infiltration of the liver. Intrarenal nephrolithiasis left kidney again noted without evidence of hydronephrosis or ureteral calculus. Enterocolitis pattern with mild mural thickening involving the colon. This is similar to the prior study. Normal appendix seen. HOSPITAL COURSE: During hospital stay following issues addressed (1) C. 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 ALLERGIES: Please see below. PHYSICAL EXAMINATION ON DISCHARGE: VITAL SIGNS: Please see below. GENERAL: HEENT: NECK: CARDIOVASCULAR EXAMINATION: RESPIRATORY EXAMINATION: ABDOMINAL EXAMINATION: EXTREMITIES: SKIN: NEUROLOGICAL EXAMINATION: PSYCHIATRIC EXAMINATION: LABORATORY DATA: Please see below. IMAGING: PROGNOSIS: ACTIVITY: [As tolerated]. DIET: DISCHARGE PLAN: DISPOSITION: 07 Against Medical Advice. DISCHARGE INSTRUCTIONS: 1. . ITEMS TO FOLLOWUP ON ON OUTPATIENT: 1. . DISCHARGE CONDITION: [Stable]. TIME SPENT ON DISCHARGE: Greater than minutes. Vital Signs/I&Os Vital Signs Date Time Temp Pulse Resp B/P (MAP) Pulse Ox O2 Delivery O2 Flow Rate FiO2 04/07/20 08:26 93 143/100 04/07/20 06:00 98.1 20 98 Room Air I&O- Last 24 Hours up to 6 AM 04/07/20 06:00 Intake Total 4750 ml Output Total 2025 ml Balance 2725 ml Laboratory Data Labs 24H Laboratory Tests 2 04/06/20 17:58: Anion Gap 5L, Glomerular Filtration Rate > 60.0, Calcium Level 7.8L 04/06/20 23:40: Anion Gap 7L, Glomerular Filtration Rate > 60.0, Calcium Level 8.0L 04/07/20 06:14: Anion Gap 7L, Glomerular Filtration Rate > 60.0, Calcium Level 8.0L 04/07/20 11:38: Anion Gap 6L, Glomerular Filtration Rate > 60.0, Calcium Level 8.3L CBC/BMP Laboratory Tests 04/06/20 17:58 04/06/20 23:40 04/07/20 06:14 04/07/20 11:38 Microbiology Microbiology 04/05/20 Respiratory Virus Panel (PCR) ([facility]) - Final, Complete Discharge Medications Scheduled Buprenorphine HCl/Naloxone HCl (Suboxone 8 mg-2 mg Sl Film) 1 Each Film, 1 STRIP SL DAILY, (Reported) Sertraline HCl (Sertraline HCl) 100 Mg Tablet, 150 MG PO DAILY, (Reported) Vancomycin Hcl (Vancomycin HCl) 125 Mg Capsule, 125 MG PO QID Allergies Coded Allergies: No Known Drug Allergies (Verified Allergy, Unknown, 07/28/19) MIKE THOMPSON DO Apr 07, 2020 16:42
== END 2020-04-07 13:32 | disposition left against medical advice (07) ==
LOC: M ED 14:37 → M ED INP 14:38 → ENRESERV 04-06 12:25 → M MSPAV 04-06 12:49
PROVIDERS: ADMIT Internal Medicine; ATTEND Internal Medicine
DX: A04.72 Enterocolitis due to Clostridium difficile, not specified as recurrent (principal); Z53.21 Procedure and treatment not carried out due to patient leaving prior to being seen by health care provider; F10.231 Alcohol dependence with withdrawal delirium; F32.9 Major depressive disorder, single episode, unspecified; R00.0 Tachycardia, unspecified; Z79.899 Other long term (current) drug therapy; Z79.891 Long term (current) use of opiate analgesic; F17.218 Nicotine dependence, cigarettes, with other nicotine-induced disorders
CPT/HCPCS: 36415; 74177; 80048; 80076; 83690; 83735; 85025; 85027; 87486; 87581; 87633; 87798; 93041; 96361; 96372; 96374; 96375; 99285; G0480; J1650; J2060; J2405; Q9967

== ENCOUNTER 2020-04-20 14:34 | Emergency (ER) | payer OTHER ==
[~2020-04-20 14:34] MED LIST changes: +VANC125C3 PO
[2020-04-20] MEDS ORDERED: EPINEPHrine 1MG/10ML SYRINGE 1.5IN ONE (14:35)
== END 2020-04-20 16:54 | disposition expired ==
LOC: M ED 14:34
DX: I46.9 Cardiac arrest, cause unspecified (principal); F33.9 Major depressive disorder, recurrent, unspecified; F11.21 Opioid dependence, in remission; F17.200 Nicotine dependence, unspecified, uncomplicated
CPT/HCPCS: 92950; 99285; U0002

== ENCOUNTER → 2020-04-21 | Outpatient (REF) ==
[2020-04-21 11:11] LABS: INFLUENZA A AMPLIFICATION NEGATIVE (NEGATIVE); INFLUENZA B AMPLIFICATION NEGATIVE (NEGATIVE)
== END ==
LOC: M LAB 10:19